=== PATIENT | female | born 1950 | race Caucasian/White ===

== ENCOUNTER 2018-06-20 17:13 | Inpatient (IN) | payer MEDICARE ==
--- NOTE | 2018-06-20 18:04 | ED ---
General Adult HPI - General Chief complaint: Weakness Stated complaint: low bp, sent from [employer] Time Seen by Provider: 06/20/18 17:25 Source: patient, RN notes reviewed Mode of arrival: wheelchair Limitations: no limitations - History of Present Illness Initial comments: This is a 68-year-old female who presents emergency Department who has a history of multiple myeloma. Patient has also been anemic more recently and been getting blood transfusion. Patient felt weak today she went to her doctor' s office where they found the patient to have a hemoglobin 8.3 which is decent for her according to the . Patient states her blood pressures closely [facility] where she received 2 L of fluid and her blood pressure remained low so they sent him to the emergency department. Patient states she's been feeling extremely weak today. Patient also states she's a little bit lightheaded. Patient denies any chest pain difficulty breathing [place] of breath per patient denies any abdominal pain patient denies nausea vomiting diarrhea. Patient denies any lightheadedness dizziness or near syncopal episode. Patient states she has not been eating or drinking well lately. - Related Data Home Medications Medication Instructions Recorded Confirmed No Known Home Medications 01/07/16 06/20/18 Allergies Allergy/AdvReac Type Severity Reaction Status Date / Time No Known Allergies Allergy Verified 06/20/18 18:18 Review of Systems ROS Statement: Those systems with pertinent positive or pertinent negative responses have been documented in the HPI. ROS Other: All systems not noted in ROS Statement are negative. Past Medical History Past Medical History: Cancer Additional Past Medical History / Comment(s): Leukemia History of Any Multi-Drug Resistant Organisms: None Reported Past Surgical History: Breast Surgery, Cholecystectomy, Joint Replacement, Orthopedic Surgery, Tubal Ligation Additional Past Surgical History / Comment(s): total rt hip arthroplasty, R breast cyst removal Past Anesthesia/Blood Transfusion Reactions: No Reported Reaction Past Psychological History: No Psychological Hx Reported Smoking Status: Former smoker Past Alcohol Use History: None Reported Past Drug Use History: None Reported - Past Family History Father Family Medical History: No Reported History Additional Family Medical History / Comment(s): Father was healthy. He in his 70's. Mother Family Medical History: Diabetes Mellitus Additional Family Medical History / Comment(s): Mother is 93 yrs old. Brother(s) Family Medical History: Cancer Additional Family Medical History / Comment(s): LUNG CANCER General Exam - General Exam Comments Initial Comments: GENERAL: Patient is cachectic Patient is nontoxic and well-hydrated and is in no acute distress. ENT: Neck is soft and supple. No significant lymphadenopathy is noted. Patient's tongue is pale EYES: Conjunctiva is pale. Extraocular movements were intact and pupils were equal round and reactive to light. Eyelids were unremarkable. PULMONARY: Unlabored respirations. Good breath sounds bilaterally. No audible rales rhonchi or wheezing was noted. CARDIOVASCULAR: There is a regular rate and rhythm without any murmurs gallops or rubs. ABDOMEN: Soft and nontender with normal bowel sounds. No palpable organomegaly was noted. There is no palpable pulsatile mass. SKIN: Patient is pale NEUROLOGIC: Patient is alert and oriented x3. Cranial nerves II through XII are grossly intact. Motor and sensory are also intact. Normal speech, volume and content. Symmetrical smile. MUSCULOSKELETAL: Normal extremities with adequate strength and full range of motion. LYMPHATICS: No significant lymphadenopathy is noted PSYCHIATRIC: Normal psychiatric evaluation. Limitations: no limitations Course Vital Signs 06/20/18 06/20/18 06/20/18 17:22 18:09 19:00 Temperature 97.4 F L Pulse Rate 100 96 Pulse Rate [ 62 Left Supine Pulse Oximetery ] Respiratory 20 18 Rate Blood Pressure 77/48 91/53 O2 Sat by Pulse 99 98 Oximetry 06/20/18 06/20/18 19:24 19:40 Temperature 98.5 F 98.5 F Pulse Rate 93 93 Pulse Rate [ Left Supine Pulse Oximetery ] Respiratory 18 16 Rate Blood Pressure 73/46 95/49 O2 Sat by Pulse 98 97 Oximetry Medical Decision Making - Medical Decision Making EKG shows normal sinus rhythm at 94 bpm IA interval is on a 32 QRS is 1:30 QT interval 386 QTC is 42. Patient's EKG shows left bundle branch block. Patient' s EKG shows no ST segment elevation or depression. Chest x-ray shows early pulmonary edema. There is questionable infiltrate. Dr. Salas wanted the patient to be started on antibiotics so started the patient on cefepime. Patient was low on a calcium so I gave her calcium chloride. She is blood pressure was in the 80s and 90s for most of her stay however it was 102 on my last check. states that most never gets above 100. I give the patient some hydrocortisone because of the stress that the patient was under. I spoke with Dr. Olivas and he agreed to admit the patient I admitted the patient wrote admitting orders. I consulted Dr. Salas. - Lab Data Result diagrams: 06/20/18 18:02 06/20/18 18:02 Lab Results 06/20/18 06/20/18 06/20/18 Range/Units 18:02 18:02 18:02 WBC 1.6 L (3.8-10.6) k/uL RBC 2.73 L (3.80-5.40) m/uL Hgb 7.7 L (11.4-16.0) gm/dL Hct 24.3 L (34.0-46.0) % MCV 89.1 (80.0-100.0) fL MCH 28.3 (25.0-35.0) pg MCHC 31.8 (31.0-37.0) g/dL RDW 17.7 H (11.5-15.5) % Plt Count 21 L (150-450) k/uL Neutrophils % (Manual) 36 % Band Neutrophils % 3 % Lymphocytes % (Manual) 51 % Monocytes % (Manual) 10 % Neutrophils # (Manual) 0.60 L (1.3-7.7) k/uL Lymphocytes # (Manual) 0.82 L (1.0-4.8) k/uL Monocytes # (Manual) 0.16 (0-1.0) k/uL Nucleated RBCs 0 (0-0) /100 WBC Manual Slide Review Performed Polychromasia Present Hypochromasia Slight Basophilic Stippling Present Anisocytosis Slight Anisocytosis (manual) Present PT (9.0-12.0) sec INR (<1.2) APTT (22.0-30.0) sec Sodium 131 L (137-145) mmol/L Potassium 4.7 (3.5-5.1) mmol/L Chloride 109 H (98-107) mmol/L Carbon Dioxide 18 L (22-30) mmol/L Anion Gap 4 mmol/L BUN 30 H (7-17) mg/dL Creatinine 0.53 (0.52-1.04) mg/dL Est GFR (CKD-EPI)AfAm >90 (>60 ml/min/1.73 sqM) Est GFR (CKD-EPI)NonAf >90 (>60 ml/min/1.73 sqM) Glucose 108 H (74-99) mg/dL Plasma Lactic Acid Bobby (0.7-2.0) mmol/L Calcium 6.7 L (8.4-10.2) mg/dL Magnesium 2.0 (1.6-2.3) mg/dL Total Bilirubin 1.2 (0.2-1.3) mg/dL AST 15 (14-36) U/L ALT 37 (9-52) U/L Alkaline Phosphatase 27 L (38-126) U/L Total Creatine Kinase <20 L (30-135) U/L CK-MB (CK-2) 0.8 (0.0-2.4) ng/mL CK-MB (CK-2) Rel Index Troponin I <0.012 (0.000-0.034) ng/mL Total Protein 3.1 L (6.3-8.2) g/dL Albumin 1.4 L (3.5-5.0) g/dL 06/20/18 06/20/18 Range/Units 18:02 18:02 WBC (3.8-10.6) k/uL RBC (3.80-5.40) m/uL Hgb (11.4-16.0) gm/dL Hct (34.0-46.0) % MCV (80.0-100.0) fL MCH (25.0-35.0) pg MCHC (31.0-37.0) g/dL RDW (11.5-15.5) % Plt Count (150-450) k/uL Neutrophils % (Manual) % Band Neutrophils % % Lymphocytes % (Manual) % Monocytes % (Manual) % Neutrophils # (Manual) (1.3-7.7) k/uL Lymphocytes # (Manual) (1.0-4.8) k/uL Monocytes # (Manual) (0-1.0) k/uL Nucleated RBCs (0-0) /100 WBC Manual Slide Review Polychromasia Hypochromasia Basophilic Stippling Anisocytosis Anisocytosis (manual) PT 13.5 H (9.0-12.0) sec INR 1.3 H (<1.2) APTT 27.3 (22.0-30.0) sec Sodium (137-145) mmol/L Potassium (3.5-5.1) mmol/L Chloride (98-107) mmol/L Carbon Dioxide (22-30) mmol/L Anion Gap mmol/L BUN (7-17) mg/dL Creatinine (0.52-1.04) mg/dL Est GFR (CKD-EPI)AfAm (>60 ml/min/1.73 sqM) Est GFR (CKD-EPI)NonAf (>60 ml/min/1.73 sqM) Glucose (74-99) mg/dL Plasma Lactic Acid Bobby 2.1 H* (0.7-2.0) mmol/L Calcium (8.4-10.2) mg/dL Magnesium (1.6-2.3) mg/dL Total Bilirubin (0.2-1.3) mg/dL AST (14-36) U/L ALT (9-52) U/L Alkaline Phosphatase (38-126) U/L Total Creatine Kinase (30-135) U/L CK-MB (CK-2) (0.0-2.4) ng/mL CK-MB (CK-2) Rel Index Troponin I (0.000-0.034) ng/mL Total Protein (6.3-8.2) g/dL Albumin (3.5-5.0) g/dL Disposition Clinical Impression: Hypocalcemia, Hypotension, Anemia, Pulmonary edema, Pneumonia Disposition: ADMITTED IP TO THIS HOSP Referrals: Montrell Jorge III, MD [Primary Care Provider] - 1-2 days Time of Disposition: 20:39
[2018-06-20 18:34] LABS: ALT 37 U/L (9-52); AST 15 U/L (14-36); Albumin 1.4 g/dL (3.5-5.0); Alkaline Phosphatase 27 U/L (38-126); Anion Gap 4 mmol/L; Blood Urea Nitrogen 30 mg/dL (7-17); Calcium 6.7 mg/dL (8.4-10.2); Carbon Dioxide 18 mmol/L (22-30); Chloride 109 mmol/L (98-107); Glucose 108 mg/dL (74-99); Potassium 4.7 mmol/L (3.5-5.1); Sodium 131 mmol/L (137-145); Total Bilirubin 1.2 mg/dL (0.2-1.3); Total Protein 3.1 g/dL (6.3-8.2)
[2018-06-20 18:37] LABS: Creatine Kinase <20 U/L (30-135)
--- NOTE | 2018-06-20 18:43 | XR ---
EXAMINATION TYPE: XR chest 1V portable DATE OF EXAM: 06/20/2018 COMPARISON: 10/28/2015 HISTORY: Weakness TECHNIQUE: Single frontal view of the chest is obtained. FINDINGS: A single view was obtained and shows blunting of the costophrenic angles. There is mild pu lmonary congestion. There is airspace infiltrates in the mid and lower lung mcdonald. There are chest l tylor. Thoracic aorta is atheromatous. IMPRESSION: There is evidence for new congestive heart failure compared to old exam. Bilateral lower lobe pneumonia is possible also. Small pleural effusions.
[2018-06-20 18:45] LABS: INR 1.3 (<1.2); Partial Thromboplastin Time 27.3 sec (22.0-30.0); Prothrombin Time 13.5 sec (9.0-12.0)
[2018-06-20 18:47] LABS: Anisocytosis Slight; HCT 24.3 % (34.0-46.0); HGB 7.7 gm/dL (11.4-16.0); Hypochromasia Slight; MCH 28.3 pg (25.0-35.0); MCHC 31.8 g/dL (31.0-37.0); MCV 89.1 fL (80.0-100.0); RBC 2.73 m/uL (3.80-5.40); RDW 17.7 % (11.5-15.5)
[2018-06-20 18:49] LABS: Creatine Kinase MB 0.8 ng/mL (0.0-2.4); Troponin I <0.012 ng/mL (0.000-0.034)
[2018-06-20 19:03] LABS: WBC 1.6 k/uL (3.8-10.6)
[2018-06-20 19:13] LABS: Anisocytosis (M) Present; Band Neutrophils % 3 %; Basophilic Stippling Present; Lymphocytes # (M) 0.82 k/uL (1.0-4.8); Monocytes # (M) 0.16 k/uL (0-1.0); Neutrophils % (M) 36 %; Nucleated Red Blood Cells 0 /100 WBC (0-0); Platelet Count 21 k/uL (150-450); Polychromasia Present; Total Cells Counted 100
[2018-06-20] MEDS ORDERED: HYDROCORTISONE SUCCINATE 100 MG/2 ML VIAL IV STA (19:44)
[2018-06-20] MEDS ORDERED: CALCIUM CHLORIDE 1,000 MG in SODIUM CHLORIDE 0.9% 100 ML IVPB STA (19:44)
[2018-06-20] MEDS ORDERED: FUROSEMIDE 10 MG/ML 10 ML VIAL IV STA (20:11)
[2018-06-20] MEDS ORDERED: CEFEPIME 2 GM in SODIUM CHLORIDE 0.9% 50 ML IVPB STA (20:58)
[2018-06-20] MEDS: SODIUM CHLORIDE 0.9% 1,000 ML IV SCH (22:40)
[2018-06-20 23:25] LABS: Creatine Kinase <20 U/L (30-135)
[2018-06-20 23:38] LABS: Creatine Kinase MB 0.7 ng/mL (0.0-2.4); Troponin I <0.012 ng/mL (0.000-0.034)
[2018-06-21 01:58] LABS: Anisocytosis Slight; HCT 23.9 % (34.0-46.0); HGB 7.3 gm/dL (11.4-16.0); Hypochromasia Marked; MCH 28.4 pg (25.0-35.0); MCHC 30.5 g/dL (31.0-37.0); MCV 93.2 fL (80.0-100.0); Mean Platelet Volume 16.2; RBC 2.57 m/uL (3.80-5.40); RDW 17.6 % (11.5-15.5)
[2018-06-21 02:10] LABS: WBC 1.3 k/uL (3.8-10.6)
[2018-06-21 02:11] LABS: Platelet Count 23 k/uL (150-450)
[2018-06-21 03:33] LABS: Lymphocytes # (M) 0.39 k/uL (1.0-4.8); Monocytes # (M) 0.08 k/uL (0-1.0); Neutrophils # (M) 0.83 k/uL (1.3-7.7); Neutrophils % (M) 64 %; Nucleated Red Blood Cells 0 /100 WBC (0-0); Total Cells Counted 100
[2018-06-21 03:35] LABS: Polychromasia Present
[2018-06-21] MEDS: CEFEPIME 2 GM in SODIUM CHLORIDE 0.9% 50 ML IVPB SCH ×2 (05:51→14:09)
[2018-06-21 07:34] LABS: Anisocytosis Slight; HCT 23.8 % (34.0-46.0); HGB 7.1 gm/dL (11.4-16.0); Hypochromasia Marked; MCH 28.2 pg (25.0-35.0); Mean Platelet Volume 14.6; RBC 2.53 m/uL (3.80-5.40); RDW 17.8 % (11.5-15.5)
[2018-06-21 07:38] LABS: Platelet Count 18 k/uL (150-450)
[2018-06-21 08:06] LABS: Eosinophils # (M) 0.01 k/uL (0-0.7); Large Platelets Present; Lymphocytes # (M) 0.49 k/uL (1.0-4.8); Neutrophils % (M) 46 %; Nucleated Red Blood Cells 0 /100 WBC (0-0); Polychromasia Present; Total Cells Counted 100
[2018-06-21 08:10] LABS: Creatine Kinase <20 U/L (30-135)
[2018-06-21 08:22] LABS: Troponin I <0.012 ng/mL (0.000-0.034)
[2018-06-21 08:24] LABS: Creatine Kinase MB 0.8 ng/mL (0.0-2.4)
[2018-06-21] MEDS: SODIUM CHLORIDE 0.9% 1,000 ML IV SCH (10:01)
--- NOTE | 2018-06-21 13:07 | P.CONS ---
History of Present Illness - Reason for Consult Consult date: 06/21/18 pancytopenia Requesting physician: Zuhair Oakes - Chief Complaint hypotension, sent from MD office - History of Present Illness Mrs. Lamar is a very pleasant female pt who was evaluated by Dr. Salas in Apr 2017. She had had an episode of leukocytosis, WBC 60,000-70,000 range, duering an episode of pneumonia but, this resolved and her WBC returned to normal. Pt went to her PCP 04/19/17 due to easy bruising, she had a normal chem panel but, WBC was 62.5 with hemoglobin 12.7 and platelets 247. Differential showed elevation of all cell lines as well as a significant left shift with myelocytes, promyelocytes, and blasts noted. Repeat labs on 04/27/17 showed WBC of 56.9 with a similar differential, no blasts. 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 She saw Dr. Vazquez who concurred diagnosis. She was not felt to be a transplant candidate per the pt. Her WBC was increasing rapidly with progressive fatigue so, she was started on Hydrea 500 mg Po BID on 06/23/17. Her dose was adjusted and held as needed based on counts or procedures. Then in Apr 2018 her counts were noted to be decreasing. Hydrea was held but, pancytopenia persisted and progressed. She had a bone marrow on 05/22/18. Unfortunately, there was progression of myelofibrosis as well as obvious MDS. She was in office yesterday for monitoring and conservative transfusions needed for MF and MDS pending BMT in September 2018. She was seen and evaluated at [facility]. Pt was told to "get stronger" so she can have transplant. Pt is unable to rehabilitate adequately due to low counts, fatigue , poor appetite, anorexia and weakness-caused by 2 diseases and low blood counts. In the office yesterday she denied fevers, nausea, vomiting, diarrhea, constipation or pain, her BP was very low. Attempted fluid resuscitation in the office but pt did not recover so she was sent to hospital. She was given additional fluids, abx for elevated lactic acid, pancultures pending. She feels a little better today, not as anxious, fatigue, appetite, anorexia and weakness persist, no other c/o on a 14 point ROS. Review of Systems 14 point ROS is negative except as stated in HPI Past Medical History Past Medical History: Cancer, Pneumonia Additional Past Medical History / Comment(s): Leukemia History of Any Multi-Drug Resistant Organisms: None Reported Past Surgical History: Breast Surgery, Cholecystectomy, Joint Replacement, Orthopedic Surgery, Tubal Ligation Additional Past Surgical History / Comment(s): Total rt hip arthroplasty, R breast cyst removal, ganglion cyst removed on right wrist, bunion and toe shortened left foot, Past Anesthesia/Blood Transfusion Reactions: No Reported Reaction Past Psychological History: No Psychological Hx Reported Additional Psychological History / Comment(s): Pt resides with her spouse. Patient uses a walker/cane/ wheelchair depending on situation. Smoking Status: Former smoker Past Alcohol Use History: None Reported Additional Past Alcohol Use History / Comment(s): Pt states she started smoking in 1975 and is a 1 ppd smoker. Past Drug Use History: None Reported - Past Family History Father Family Medical History: No Reported History Additional Family Medical History / Comment(s): Father was healthy. He in his 70's. Alcoholic. Mother Family Medical History: Diabetes Mellitus Additional Family Medical History / Comment(s): Mother has passed now. Brother(s) Family Medical History: Cancer Additional Family Medical History / Comment(s): LUNG CANCER Medications and Allergies Home Medications Medication Instructions Recorded Confirmed Type No Known Home Medications 01/07/16 06/20/18 History Allergies Allergy/AdvReac Type Severity Reaction Status Date / Time No Known Allergies Allergy Verified 06/20/18 18:18 Physical Exam Vitals: Vital Signs Temp Pulse Pulse Resp BP BP Pulse Ox 06/21/18 05:00 97.4 F L 90 16 86/55 93 L 06/21/18 00:17 95/64 98 06/20/18 22:37 98.0 F 98 24 109/68 97 06/20/18 22:12 98.2 F 97 20 115/61 96 06/20/18 22:03 98 06/20/18 21:00 92 20 104/49 95 06/20/18 20:50 90 22 104/49 98 06/20/18 20:40 90 20 96/48 98 06/20/18 20:20 90 21 102/46 98 06/20/18 20:00 91 8 L 108/54 06/20/18 19:40 98.5 F 93 16 95/49 97 06/20/18 19:24 98.5 F 93 18 73/46 98 06/20/18 19:00 96 18 91/53 98 06/20/18 18:09 62 06/20/18 17:22 97.4 F L 100 20 77/48 99 Intake and Output 06/20/18 06/21/18 06/21/18 22:59 06:59 14:59 Intake Total 875 Balance 875 Intake: Intake, IV Titration 650 Amount Cefepime 2 gm In Sodium 50 Chloride 0.9% 50 ml @ 100 mls/hr IVPB ONCE STA Rx# :[id number] Sodium Chloride 0.9% 1, 600 000 ml @ 75 mls/hr IV . [id number] [facility] Rx#:[id number] Oral 225 Other: Voiding Method Bedside Commode # Voids 1 # Bowel Movements 1 Weight 63.957 kg - Constitutional General appearance: cooperative, no acute distress, thin - EENT Eyes: anicteric sclerae, EOMI ENT: normal oropharynx - Neck Neck: no lymphadenopathy - Respiratory Respiratory: bilateral: CTA - Cardiovascular Heart sounds: normal: S1, S2 leg Peripheral Edema: bilateral: Trace - Gastrointestinal General gastrointestinal: no absent bowel sounds, no decreased bowel sounds, no distended, no hepatomegaly, no hyperactive bowel sounds, normal bowel sounds, no organomegaly, no rigid, no scaphoid, soft, no splenomegaly, no tenderness, no umbilical hernia, no ventral hernia - Integumentary Integumentary: pale - Neurologic Neurologic: CNII-XII intact - Musculoskeletal Musculoskeletal: generalized weakness, strength equal bilaterally - Psychiatric Psychiatric: A&O x's 3, appropriate affect, intact judgment & insight Results CBC & Chem 7: 06/21/18 07:18 06/20/18 18:02 Labs: Abnormal Lab Results - Last 24 Hours (Table) 06/20/18 06/20/18 06/20/18 Range/Units 18:02 18:02 18:02 WBC 1.6 L (3.8-10.6) k/uL RBC 2.73 L (3.80-5.40) m/uL Hgb 7.7 L (11.4-16.0) gm/dL Hct 24.3 L (34.0-46.0) % MCHC (31.0-37.0) g/dL RDW 17.7 H (11.5-15.5) % Plt Count 21 L (150-450) k/uL Neutrophils # (Manual) 0.60 L (1.3-7.7) k/uL Lymphocytes # (Manual) 0.82 L (1.0-4.8) k/uL PT (9.0-12.0) sec INR (<1.2) Sodium 131 L (137-145) mmol/L Chloride 109 H (98-107) mmol/L Carbon Dioxide 18 L (22-30) mmol/L BUN 30 H (7-17) mg/dL Glucose 108 H (74-99) mg/dL Plasma Lactic Acid Bobby (0.7-2.0) mmol/L Calcium 6.7 L (8.4-10.2) mg/dL Alkaline Phosphatase 27 L (38-126) U/L Total Creatine Kinase <20 L (30-135) U/L Total Protein 3.1 L (6.3-8.2) g/dL Albumin 1.4 L (3.5-5.0) g/dL 06/20/18 06/20/18 06/20/18 Range/Units 18:02 18:02 22:35 WBC (3.8-10.6) k/uL RBC (3.80-5.40) m/uL Hgb (11.4-16.0) gm/dL Hct (34.0-46.0) % MCHC (31.0-37.0) g/dL RDW (11.5-15.5) % Plt Count (150-450) k/uL Neutrophils # (Manual) (1.3-7.7) k/uL Lymphocytes # (Manual) (1.0-4.8) k/uL PT 13.5 H (9.0-12.0) sec INR 1.3 H (<1.2) Sodium (137-145) mmol/L Chloride (98-107) mmol/L Carbon Dioxide (22-30) mmol/L BUN (7-17) mg/dL Glucose (74-99) mg/dL Plasma Lactic Acid Bobby 2.1 H* (0.7-2.0) mmol/L Calcium (8.4-10.2) mg/dL Alkaline Phosphatase (38-126) U/L Total Creatine Kinase <20 L (30-135) U/L Total Protein (6.3-8.2) g/dL Albumin (3.5-5.0) g/dL 06/21/18 06/21/18 06/21/18 Range/Units 01:07 07:18 07:18 WBC 1.3 L* 1.3 L* (3.8-10.6) k/uL RBC 2.57 L 2.53 L (3.80-5.40) m/uL Hgb 7.3 L 7.1 L (11.4-16.0) gm/dL Hct 23.9 L 23.8 L (34.0-46.0) % MCHC 30.5 L 30.0 L (31.0-37.0) g/dL RDW 17.6 H 17.8 H (11.5-15.5) % Plt Count 23 L 18 L* (150-450) k/uL Neutrophils # (Manual) 0.83 L 0.60 L (1.3-7.7) k/uL Lymphocytes # (Manual) 0.39 L 0.49 L (1.0-4.8) k/uL PT (9.0-12.0) sec INR (<1.2) Sodium (137-145) mmol/L Chloride (98-107) mmol/L Carbon Dioxide (22-30) mmol/L BUN (7-17) mg/dL Glucose (74-99) mg/dL Plasma Lactic Acid Bobby (0.7-2.0) mmol/L Calcium (8.4-10.2) mg/dL Alkaline Phosphatase (38-126) U/L Total Creatine Kinase <20 L (30-135) U/L Total Protein (6.3-8.2) g/dL Albumin (3.5-5.0) g/dL Chest x-ray: report reviewed Assessment and Plan (1) Hypotension Narrative/Plan: Fluid resuscitation. Pt was given solucortef. BP stable, pt looks better then yesterday. Cont fluid support, encourage oral intake Current Visit: Yes Status: Acute Priority: High Code(s): I95.9 - HYPOTENSION, UNSPECIFIED SNOMED Code(s): 97495767 (2) Pancytopenia Narrative/Plan: Due to myelofibrosis and myelodysplastic syndrome. No transfusions today. Only irradiated blood products. No GCSF. Current Visit: Yes Status: Acute Priority: High Code(s): D61.818 - OTHER PANCYTOPENIA SNOMED Code(s): 736128401 (3) Myelofibrosis Current Visit: Yes Status: Acute Priority: High Code(s): D75.81 - MYELOFIBROSIS SNOMED Code(s): 56816750 (4) Myelodysplastic syndrome Current Visit: Yes Status: Acute Priority: High Code(s): D46.9 - MYELODYSPLASTIC SYNDROME, UNSPECIFIED SNOMED Code(s): 965487379 Plan: Pt is wanting to rehabilitate to be a transplant candidate. She is in a situation where she cannot receive treatment for either disease as it will profoundly affect her already poor blood counts with the added chemo side effects. This is not an optimum scenario for rehabilitation. Pt is on supportive transfusions but, that is all transfusions will do, support her, they will not improve her ability rehabilitate. Spoke with BMT nurse at [facility]. She recommended initiating the baseline work up necessary to see if a pt is a candidate for transplant. PFTs and ECHO ordered. Dr. Salas is trying to get a hold of transplant lead. We will f/u with pt daily and keep them up to date on plan. All pt and husbands questions were answered attests: I have performed H&P and developed impression and plan of patient with dictator. I agree with dictated note, documented as a scribe.
[2018-06-21] MEDS: ACETAMINOPHEN TAB 325 MG TAB PO PRN (13:12)
[2018-06-21 15:04] LABS: Appearance,Urine Clear (Clear); Bacteria,Urine Few /hpf; Bilirubin,Urine Negative (Negative); Blood,Urine Negative (Negative); Color,Urine Yellow; Glucose,Urine (UA) Negative (Negative); Ketones,Urine Trace (Negative); Leukocyte Esterase,Urine Small (Negative); Mucus,Urine Few /hpf; Nitrite,Urine Positive (Negative); Protein,Urine 1+ (Negative); Specific Gravity,Urine 1.018 (1.001-1.035); Squamous Epithelial Cell,Urine 2 /hpf (0-4); Urobilinogen,Urine <2.0 mg/dL (<2.0); WBC,Urine 28 /hpf (0-5)
--- NOTE | 2018-06-21 16:39 | HP ---
HISTORY AND PHYSICAL CHIEF COMPLAINTS: Hypotension, weakness, depression. This 68-year-old woman with a past medical history of multiple medical problems, including myelodysplastic syndrome, history of myelofibrosis, history of pneumonia, history of leukopenia, history of cholecystectomy, history of DJD, history of breast surgery, being followed by Dr. Jorge and Dr. Willis in the outpatient setting , was also involved with [facility] for possible bone marrow transplantation. The patient recently was receiving blood transfusion and the patient, because of complaints of weakness and having low blood pressure, 2 L of IV fluids was given in [facility] because of lack of improvement, patient came to the emergency room and was admitted for further evaluation and treatment. The blood pressure is slightly improved at this time. Patient has pancytopenia, hemoglobin 7.1, platelets of 18, plasma lactic acid 2.1. Patient was also started on broad-spectrum IV antibiotics. Patient is being closely monitored. The patient is on IV cefepime at this time. The cultures are negative so far. There is no history of any fever, rigor or chills. No history of headache , loss of consciousness, seizures. PAST MEDICAL HISTORY: 1. History of MDS. 2. History of myelofibrosis. 3. Cholecystis. 4. History of DJD. HOME MEDICATIONS: None. ALLERGIES: NONE. FAMILY HISTORY: No history of heart disease or strokes in the family. History of alcohol in the family. SOCIAL HISTORY: Previous history of smoking. No current smoking or alcohol intake. REVIEW OF SYSTEMS: ENT: No diminished hearing. No diminished vision. CARDIOVASCULAR SYSTEM: No angina, palpitations. RESPIRATORY SYSTEM: As mentioned earlier. GI: As mentioned earlier. : No dysuria or retention. NERVOUS SYSTEM: No numbness, weakness. ALLERGY/IMMUNOLOGY: No asthma, hayfever. MUSCULOSKELETAL: As mentioned earlier. HEMATOLOGY/ONCOLOGY: No history of anemia. ENDOCRINE: No history of diabetes, hypothyroidism. CONSTITUTIONAL: As mentioned earlier. DERMATOLOGY: Negative. RHEUMATOLOGY: Negative. PSYCHIATRY: As mentioned earlier. PHYSICAL EXAMINATION: Patient is alert and oriented x3. Pulse is 85, blood pressure 84/51, respiration 17, temperature 97.4, pulse ox 96% on room air. HEENT: Conjunctivae normal. Oral mucosa moist. NECK: No jugular venous distention. No carotid bruit. No lymph node enlargement. CARDIOVASCULAR SYSTEM: S1, S2 muffled. RESPIRATORY SYSTEM: Breath sounds diminished at the bases. A few scattered rhonchi and crackles. ABDOMEN: Soft, non-tender. No mass palpable. LEGS: No edema. No swelling. NERVOUS SYSTEM: Higher functions as mentioned earlier. Moves all 4 limbs. No focal motor or sensory deficit. LYMPHATICS: No lymph node palpable in neck, axillae or groin. SKIN: No ulcer, rash, bleeding. LABS: WBC 1.3, hemoglobin 7.1, platelets 18. Sodium 131, potassium 4.7, plasma lactic acid 2.1 and creatine kinase is less than 20. ASSESSMENT: 1. Acute hypotension with possible sepsis. 2. Rule out pulmonary edema and bilateral pneumonia. 3. Pancytopenia secondary to myelodysplastic syndrome and myelofibrosis. 4. Severe leukopenia. 5. Hyponatremia. 6. Elevated plasma lactic acid, present on admission. 7. Hypoalbuminemia. 8. History of cholecystectomy. 9. History of degenerative joint disease. RECOMMENDATIONS AND DISCUSSION: In this 68-year-old woman who presented with multiple complex medical issues, we will monitor the patient closely, continue the current management, continue symptomatic treatment, broad-spectrum IV antibiotics. Obtain the cultures. Infectious disease evaluation. I would also get a pulmonary consultation for evaluation of pneumonia. BNP is also being done. Two-D echo also will be ordered. The prognosis is guarded because of the multiple complex medical issues. Further recommendations to follow. A copy of this dictation is being forwarded to Dr. Jorge, who is the primary physician. LUZ / DELORIS: [id number] / [id number]
[2018-06-21] MEDS ORDERED: VANCOMYCIN IV PER PHARMACY 1 EACH MISC MISCELLANE PRN (17:04)
[2018-06-21] MEDS ORDERED: SODIUM CHLORIDE 0.9% 500 ML 500 ML IV ONE (17:07)
[2018-06-21] MEDS ORDERED: VANCOMYCIN 1,500 MG in SODIUM CHLORIDE 0.9% 250 ML IVPB ONE (17:30)
--- NOTE | 2018-06-21 18:01 | P.CNPUL ---
History of Present Illness Consult date: 06/21/18 Requesting physician: Geovany Olivas Reason for consult: other Chief complaint: Hypotension, weakness, neutropenic sepsis History of present illness: This 68-year-old white female patient with history of miyelodysplastic syndrome , who is being considered for bone marrow transplant, presented to her medical oncologist office yesterday for monitoring and transfusions. Patient was noted to be very weak, fatigued, hypotensive. She denied any fevers, patient has been unable to eat related to severe sharp epigastric discomfort after eating. No vomiting or diarrhea. She was sent to the hospital for further evaluation and treatment, on admission was in the 70s over 40s, she was given 2 L IV fluid bolus. Lactic acid was mildly elevated at 2.1, blood work revealed pancytopenia , WBC of 1.6, hemoglobin of 7.7, platelet count of 21, INR is 1.3, sodium is 131 , potassium is 4.7, chloride is 109, CO2 is 18 BUN of 30 and creatinine of 0.53 , bun is negative 3, urinalysis showed white blood cells, small amount of leuks , few bacteria and mucus. Blood cultures were drawn and pending at this time, patient was started on broad-spectrum antibiotic in the form of cefepime. She was given a dose of IV hydrocortisone in the emergency department, chest x-ray showed mild pulmonary congestion, and blunting of the costophrenic angles consistent for congestive heart failure small bilateral pleural effusions. He was given a dose of IV Lasix in the emergency department. Patient was then admitted to the oncology floor, and her blood pressures remain hypotensive 84/ 51, she appears to be pale and fatigued, denies acute distress unless she eats. Afebrile. Serum cortisol is been ordered. Review of Systems All systems: negative Constitutional: Reports anorexia, Reports fatigue, Reports poor appetite, Reports weakness, Reports weight loss, Denies chills, Denies fever Eyes: denies blurred vision, denies pain Ears, nose, mouth and throat: Denies headache, Denies sore throat Cardiovascular: Denies chest pain, Denies shortness of breath Respiratory: Denies cough Gastrointestinal: Denies abdominal pain, Denies diarrhea, Denies nausea, Denies vomiting Genitourinary: Denies dysuria, Denies hematuria Musculoskeletal: Denies myalgias Integumentary: Denies pruritus, Denies rash Neurological: Denies numbness, Denies weakness Psychiatric: Denies anxiety, Denies depression Endocrine: Denies fatigue, Denies weight change Past Medical History Past Medical History: Cancer, Pneumonia Additional Past Medical History / Comment(s): Leukemia History of Any Multi-Drug Resistant Organisms: None Reported Past Surgical History: Breast Surgery, Cholecystectomy, Joint Replacement, Orthopedic Surgery, Tubal Ligation Additional Past Surgical History / Comment(s): Total rt hip arthroplasty, R breast cyst removal, ganglion cyst removed on right wrist, bunion and toe shortened left foot, Past Anesthesia/Blood Transfusion Reactions: No Reported Reaction Past Psychological History: No Psychological Hx Reported Additional Psychological History / Comment(s): Pt resides with her spouse. Patient uses a walker/cane/ wheelchair depending on situation. Smoking Status: Former smoker Past Alcohol Use History: None Reported Additional Past Alcohol Use History / Comment(s): Pt states she started smoking in 1975 and is a 1 ppd smoker. Past Drug Use History: None Reported - Past Family History Father Family Medical History: No Reported History Additional Family Medical History / Comment(s): Father was healthy. He in his 70's. Alcoholic. Mother Family Medical History: Diabetes Mellitus Additional Family Medical History / Comment(s): Mother has passed now. Brother(s) Family Medical History: Cancer Additional Family Medical History / Comment(s): LUNG CANCER Medications and Allergies Home Medications Medication Instructions Recorded Confirmed Type No Known Home Medications 01/07/16 06/20/18 History Allergies Allergy/AdvReac Type Severity Reaction Status Date / Time No Known Allergies Allergy Verified 06/20/18 18:18 Physical Exam Vitals: Vital Signs Temp Pulse Pulse Pulse Pulse Resp BP 06/21/18 17:27 88 06/21/18 12:07 97.4 F L 85 17 06/21/18 05:00 97.4 F L 90 16 06/21/18 00:17 06/20/18 22:37 98.0 F 98 24 109/68 06/20/18 22:12 98.2 F 97 20 115/61 06/20/18 22:03 06/20/18 21:00 92 20 104/49 06/20/18 20:50 90 22 104/49 06/20/18 20:40 90 20 96/48 06/20/18 20:20 90 21 102/46 06/20/18 20:00 91 8 L 108/54 06/20/18 19:40 98.5 F 93 16 95/49 06/20/18 19:24 98.5 F 93 18 73/46 06/20/18 19:00 96 18 91/53 06/20/18 18:09 62 BP Pulse Ox 06/21/18 17:27 96/62 06/21/18 12:07 84/51 96 06/21/18 05:00 86/55 93 L 06/21/18 00:17 95/64 98 06/20/18 22:37 97 06/20/18 22:12 96 06/20/18 22:03 98 06/20/18 21:00 95 06/20/18 20:50 98 06/20/18 20:40 98 06/20/18 20:20 98 06/20/18 20:00 06/20/18 19:40 97 06/20/18 19:24 98 06/20/18 19:00 98 06/20/18 18:09 Intake and Output 06/21/18 06/21/18 06/21/18 06:59 14:59 22:59 Intake Total 875 600 Balance 875 600 Intake: Intake, IV Titration 650 600 Amount Cefepime 2 gm In Sodium 50 Chloride 0.9% 50 ml @ 100 mls/hr IVPB ONCE [facility] Rx# :[id number] Sodium Chloride 0.9% 1, 600 600 000 ml @ 75 mls/hr IV . [id number] Rx#:[id number] Oral 225 Other: Voiding Method Bedside Commode Bedside Commode # Voids 1 1 # Bowel Movements 1 1 Weight 63.957 kg GENERAL EXAM: Alert, pleasant, pale 68-year-old white female, appears to be fatigued, but in no apparent distress, comfortable in no apparent distress. HEAD: Normocephalic/atraumatic. EYES: Normal reaction of pupils, equal size. Conjunctiva pink, sclera white. NOSE: Clear with pink turbinates. THROAT: No erythema or exudates. NECK: No masses, no JVD, no thyroid enlargement, no adenopathy. CHEST: No chest wall deformity. Symmetrical expansion. LUNGS: Equal air entry with some limited crackles, wheeze, rhonchi or dullness. CVS: Regular rate and rhythm, normal S1 and S2, no gallops, no murmurs, no rubs ABDOMEN: Soft, nontender. No hepatosplenomegaly, normal bowel sounds, no guarding or rigidity. EXTREMITIES: No clubbing, no edema, no cyanosis, 2+ pulses and upper and lower extremities. MUSCULOSKELETAL: Muscle strength and tone normal. SPINE: No scoliosis or deformity SKIN: No rashes CENTRAL NERVOUS SYSTEM: Alert and oriented -3. No focal deficits, tone is normal in all 4 extremities. PSYCHIATRIC: Alert and oriented -3. Appropriate affect. Intact judgment and insight. Results - Laboratory Findings CBC and BMP: 06/21/18 07:18 06/20/18 18:02 PT/INR, D-dimer PT 13.5 sec (9.0-12.0) H 06/20/18 18:02 INR 1.3 (<1.2) H 06/20/18 18:02 Abnormal lab findings: Abnormal Labs 06/20/18 06/20/18 06/20/18 14:17 18:02 18:02 WBC 1.6 L RBC 2.73 L Hgb 7.7 L Hct 24.3 L MCHC RDW 17.7 H Plt Count 21 L Neutrophils # (Manual) 0.60 L Lymphocytes # (Manual) 0.82 L PT INR Sodium Chloride Carbon Dioxide BUN Glucose Plasma Lactic Acid Bobby Calcium Alkaline Phosphatase Total Creatine Kinase <20 L Total Protein Albumin Urine Protein 1+ H Urine Ketones Trace H Urine Nitrite Positive H Ur Leukocyte Esterase Small H Urine WBC 28 H Urine Bacteria Few H Urine Mucus Few H 06/20/18 06/20/18 06/20/18 18:02 18:02 18:02 WBC RBC Hgb Hct MCHC RDW Plt Count Neutrophils # (Manual) Lymphocytes # (Manual) PT 13.5 H INR 1.3 H Sodium 131 L Chloride 109 H Carbon Dioxide 18 L BUN 30 H Glucose 108 H Plasma Lactic Acid Bobby 2.1 H* Calcium 6.7 L Alkaline Phosphatase 27 L Total Creatine Kinase Total Protein 3.1 L Albumin 1.4 L Urine Protein Urine Ketones Urine Nitrite Ur Leukocyte Esterase Urine WBC Urine Bacteria Urine Mucus 06/20/18 06/21/18 06/21/18 22:35 01:07 07:18 WBC 1.3 L* RBC 2.57 L Hgb 7.3 L Hct 23.9 L MCHC 30.5 L RDW 17.6 H Plt Count 23 L Neutrophils # (Manual) 0.83 L Lymphocytes # (Manual) 0.39 L PT INR Sodium Chloride Carbon Dioxide BUN Glucose Plasma Lactic Acid Bobby Calcium Alkaline Phosphatase Total Creatine Kinase <20 L <20 L Total Protein Albumin Urine Protein Urine Ketones Urine Nitrite Ur Leukocyte Esterase Urine WBC Urine Bacteria Urine Mucus 06/21/18 07:18 WBC 1.3 L* RBC 2.53 L Hgb 7.1 L Hct 23.8 L MCHC 30.0 L RDW 17.8 H Plt Count 18 L* Neutrophils # (Manual) 0.60 L Lymphocytes # (Manual) 0.49 L PT INR Sodium Chloride Carbon Dioxide BUN Glucose Plasma Lactic Acid Bobby Calcium Alkaline Phosphatase Total Creatine Kinase Total Protein Albumin Urine Protein Urine Ketones Urine Nitrite Ur Leukocyte Esterase Urine WBC Urine Bacteria Urine Mucus - Diagnostic Findings Chest x-ray: report reviewed, image reviewed Additional studies: EKG reviewed Assessment and Plan Plan: Assessment: #1. Neutropenic sepsis #2. Myelodysplastic syndrome and myelofibrosis, being considered for bone marrow transplant #3. Pancytopenia #4. Hypotension, weakness, fatigue, anorexia #5. Epigastric discomfort #6. Non-anion gap metabolic acidosis #7. Hyponatremia #8. Nicotine dependence in remission Plan: We'll give the patient additional 500 mL of IV fluid bolus. Patient needs to be transferred to the intensive care for closer monitoring. Cultures were collected and are pending at this time, will continue cefepime and will add vancomycin. 2-D echo is pending, BMP has been ordered. Increase IV fluids 2.9 normal seen at a rate of 125 the boluses completed. Hematology following, repeat blood work in the morning, a chest x-ray. I performed a history & physical examination of the patient and discussed their management with my nurse practitioner, Chandni Martins. I reviewed the nurse practitioner's note and agree with the documented findings and plan of care. Lung sounds are few bibasilar crackles. The findings and the impression was discussed with the patient. I attest to the documentation by the nurse practitioner. Time with Patient: Greater than 30
[2018-06-21 18:15] LABS: Glucose,Whole Blood 117 mg/dL (75-99)
[2018-06-21 20:36] LABS: Amylase <30 U/L (30-110); Lipase <10 U/L (23-300)
[2018-06-22] MEDS: CEFEPIME 2 GM in SODIUM CHLORIDE 0.9% 50 ML IVPB SCH ×4 (01:54→21:57)
[2018-06-22] MEDS: SODIUM CHLORIDE 0.9% 1,000 ML IV SCH ×3 (01:54→17:43)
[2018-06-22] MEDS: PANTOPRAZOLE 40 MG/10 ML VIAL IVP SCH ×3 (01:54→21:57)
[2018-06-22 06:43] LABS: Anisocytosis Slight; HCT 21.5 % (34.0-46.0); Hypochromasia Marked; MCH 28.8 pg (25.0-35.0); MCHC 30.4 g/dL (31.0-37.0); MCV 94.8 fL (80.0-100.0); Macrocytosis Slight; Mean Platelet Volume 12.9; RBC 2.27 m/uL (3.80-5.40); RDW 17.8 % (11.5-15.5)
[2018-06-22 06:51] LABS: WBC 1.3 k/uL (3.8-10.6)
[2018-06-22 06:53] LABS: HGB 6.5 gm/dL (11.4-16.0); Platelet Count 18 k/uL (150-450)
[2018-06-22 07:17] LABS: WBC 1.3 k/uL (3.8-10.6)
[2018-06-22 07:17] LABS: Anion Gap 3 mmol/L; Blood Urea Nitrogen 31 mg/dL (7-17); Calcium 6.9 mg/dL (8.4-10.2); Carbon Dioxide 14 mmol/L (22-30); Chloride 118 mmol/L (98-107); Glucose 96 mg/dL (74-99); Sodium 135 mmol/L (137-145)
[2018-06-22] MEDS ORDERED: PANTOPRAZOLE 40 MG TABLET PO SCH (07:30)
--- NOTE | 2018-06-22 08:14 | XR ---
EXAMINATION TYPE: XR chest 1V portable DATE OF EXAM: 06/22/2018 COMPARISON: AP chest x-ray dated 06/20/2018 HISTORY: Abnormal chest x-ray TECHNIQUE: Single frontal view of the chest is obtained. FINDINGS: Basilar increased density persists, biapical pleural thickening is stable. Heart size is s table. Aorta is dense. There are overlying cardiac leads. Patient is rotated. Prominent lung volumes compatible with underlying COPD are noted. No evident pneumothorax. IMPRESSION: There may be basilar atelectasis versus pneumonia, effusion. Follow-up PA and lateral ch est x-ray recommended.
[2018-06-22 08:39] LABS: Band Neutrophils % 2 %; Eosinophils # (M) 0.03 k/uL (0-0.7); Lymphocytes # (M) 0.52 k/uL (1.0-4.8); Monocytes # (M) 0.14 k/uL (0-1.0); Neutrophils % (M) 46 %; Nucleated Red Blood Cells 1 /100 WBC (0-0); Total Cells Counted 200
[2018-06-22 08:40] LABS: Large Platelets Present; Poikilocytosis (M) Present; Polychromasia Present
[2018-06-22] MEDS: VANCOMYCIN 1,250 MG in SODIUM CHLORIDE 0.9% 250 ML IVPB SCH ×2 (08:52→18:50)
[2018-06-22] MEDS ORDERED: FUROSEMIDE 10 MG/ML 2 ML VIAL IV ONE (10:00)
--- NOTE | 2018-06-22 10:46 | P.PN ---
Subjective Progress Note Date: 06/22/18 Principal diagnosis: Hypotension, MDS Hemoglobin 6.5 Objective - Vital Signs Vital signs: Vital Signs Temp 97.6 F 06/22/18 08:00 Pulse 95 06/22/18 10:00 Resp 17 06/22/18 10:00 BP 87/60 06/22/18 10:00 Pulse Ox 97 06/22/18 10:00 Intake & Output 06/21/18 06/22/18 06/22/18 18:59 06:59 18:59 Intake Total 600 500 850 Output Total 895 155 Balance 600 -395 695 Weight 63.957 kg 64.7 kg Intake: IV 500 850 Cefepime 2 gm In Sodium 100 Chloride 0.9% 50 ml @ 100 mls/hr IVPB Q8H [facility] Rx#: [id number] Sodium Chloride 0.9% 1, 500 375 000 ml @ 125 mls/hr IV . Q8H [facility] Rx#:[id number] Vancomycin 1,250 mg In 375 Sodium Chloride 0.9% 250 ml @ 125 mls/hr IVPB Q12H [facility] Rx#:[id number] Intake, IV Titration 600 Amount Sodium Chloride 0.9% 1, 600 000 ml @ 125 mls/hr IV . Q8H [facility] Rx#:[id number] Output: Urine 895 155 Other: Voiding Method Bedside Commode Bedside Commode Indwelling Catheter # Voids 1 # Bowel Movements 1 - Exam Constitutional General appearance: cooperative, no acute distress, thin - EENT Eyes: anicteric sclerae, EOMI ENT: normal oropharynx - Neck Neck: no lymphadenopathy - Respiratory Respiratory: bilateral: CTA - Cardiovascular Heart sounds: normal: S1, S2 leg Peripheral Edema: bilateral: Trace - Gastrointestinal General gastrointestinal: no absent bowel sounds, no decreased bowel sounds, no distended, no hepatomegaly, no hyperactive bowel sounds, normal bowel sounds, no organomegaly, no rigid, no scaphoid, soft, no splenomegaly, no tenderness, no umbilical hernia, no ventral hernia - Integumentary Integumentary: pale - Neurologic Neurologic: CNII-XII intact - Musculoskeletal Musculoskeletal: generalized weakness, strength equal bilaterally - Psychiatric Psychiatric: A&O x's 3, appropriate affect, intact judgment & insight - Labs CBC & Chem 7: 06/22/18 05:47 06/22/18 05:47 Labs: Abnormal Lab Results - Last 24 Hours (Table) 06/20/18 06/21/18 06/21/18 Range/Units 14:17 07:18 18:14 WBC 1.3 L* (3.8-10.6) k/uL RBC (3.80-5.40) m/uL Hgb (11.4-16.0) gm/dL Hct (34.0-46.0) % MCHC (31.0-37.0) g/dL RDW (11.5-15.5) % Plt Count (150-450) k/uL Neutrophils # (Manual) (1.3-7.7) k/uL Lymphocytes # (Manual) (1.0-4.8) k/uL Nucleated RBCs (0-0) /100 WBC Sodium (137-145) mmol/L Chloride (98-107) mmol/L Carbon Dioxide (22-30) mmol/L BUN (7-17) mg/dL POC Glucose (mg/dL) 117 H (75-99) mg/dL Calcium (8.4-10.2) mg/dL Amylase (30-110) U/L Lipase (23-300) U/L Urine Protein 1+ H (Negative) Urine Ketones Trace H (Negative) Urine Nitrite Positive H (Negative) Ur Leukocyte Esterase Small H (Negative) Urine WBC 28 H (0-5) /hpf Urine Bacteria Few H (None) /hpf Urine Mucus Few H (None) /hpf Crossmatch 06/21/18 06/22/18 06/22/18 Range/Units 19:57 05:47 05:47 WBC 1.3 L* (3.8-10.6) k/uL RBC 2.27 L (3.80-5.40) m/uL Hgb 6.5 L* (11.4-16.0) gm/dL Hct 21.5 L (34.0-46.0) % MCHC 30.4 L (31.0-37.0) g/dL RDW 17.8 H (11.5-15.5) % Plt Count 18 L* (150-450) k/uL Neutrophils # (Manual) 0.60 L (1.3-7.7) k/uL Lymphocytes # (Manual) 0.52 L (1.0-4.8) k/uL Nucleated RBCs 1 H (0-0) /100 WBC Sodium 135 L (137-145) mmol/L Chloride 118 H (98-107) mmol/L Carbon Dioxide 14 L (22-30) mmol/L BUN 31 H (7-17) mg/dL POC Glucose (mg/dL) (75-99) mg/dL Calcium 6.9 L (8.4-10.2) mg/dL Amylase <30 L (30-110) U/L Lipase <10 L (23-300) U/L Urine Protein (Negative) Urine Ketones (Negative) Urine Nitrite (Negative) Ur Leukocyte Esterase (Negative) Urine WBC (0-5) /hpf Urine Bacteria (None) /hpf Urine Mucus (None) /hpf Crossmatch 06/22/18 Range/Units 08:08 WBC (3.8-10.6) k/uL RBC (3.80-5.40) m/uL Hgb (11.4-16.0) gm/dL Hct (34.0-46.0) % MCHC (31.0-37.0) g/dL RDW (11.5-15.5) % Plt Count (150-450) k/uL Neutrophils # (Manual) (1.3-7.7) k/uL Lymphocytes # (Manual) (1.0-4.8) k/uL Nucleated RBCs (0-0) /100 WBC Sodium (137-145) mmol/L Chloride (98-107) mmol/L Carbon Dioxide (22-30) mmol/L BUN (7-17) mg/dL POC Glucose (mg/dL) (75-99) mg/dL Calcium (8.4-10.2) mg/dL Amylase (30-110) U/L Lipase (23-300) U/L Urine Protein (Negative) Urine Ketones (Negative) Urine Nitrite (Negative) Ur Leukocyte Esterase (Negative) Urine WBC (0-5) /hpf Urine Bacteria (None) /hpf Urine Mucus (None) /hpf Crossmatch See Detail Microbiology - Last 24 Hours (Table) 06/20/18 21:18 Blood Culture - Preliminary Blood No Growth after 24 hours Assessment and Plan Plan: (1) Hypotension Narrative/Plan: - Fluid resuscitation. - Pt was given solucortef. - BP stable remains low - Cont fluid support, encourage oral intake Current Visit: Yes Status: Acute Priority: High Code(s): I95.9 - HYPOTENSION, UNSPECIFIED SNOMED Code(s): 69607966 (2) Pancytopenia Narrative/Plan: - secondary to myelofibrosis and myelodysplastic syndrome. Only irradiated blood products. No GCSF. - transfuse one unit or Irradiated PRBC today and anticipate another unit this weekend - With the degree of her pancytopenia from her underlying disease she is unable to receive treatment as the risk of further cytopenias is high. - Blood cultures/Manzanares cultures pending and negative to date - vancomycin and cefepime while neutropenia and hypotensive. Current Visit: Yes Status: Acute Priority: High Code(s): D61.818 - OTHER PANCYTOPENIA SNOMED Code(s): 352893056 (3) Myelofibrosis - Follows with Dr. Salas in outpatient setting Current Visit: Yes Status: Acute Priority: High Code(s): D75.81 - MYELOFIBROSIS SNOMED Code(s): 30109258 (4) Myelodysplastic syndrome Current Visit: Yes Status: Acute Priority: High Code(s): D46.9 - MYELODYSPLASTIC SYNDROME, UNSPECIFIED SNOMED Code(s): 520081916 (5) Chronic Illness Myopathy: - Physical therapy for improved performance status, with safety considerations - Monitor Hypotension, risk falls, Risks bleeding. Plan: - Await Dr. Salas's converstion with [facility] lead to determine plan moving forward, in the mean time continue supportive care with transfusions, physical therapy, and initial work-up in preparation for potential transplant - Irradiated blood products only
--- NOTE | 2018-06-22 11:45 | ECHOF ---
Referral Reason:baseline, evaluation for BMT MEASUREMENTS -------- HEIGHT: 172.7 cm WEIGHT: 64.0 kg BP: 84/51 RVIDd: 3.0 cm (< 3.3) IVSd: 1.0 cm (0.6 - 1.1) LVIDd: 3.7 cm (3.9 - 5.3) LVPWd: 1.0 cm (0.6 - 1.1) IVSs: 1.1 cm LVIDs: 2.3 cm LVPWs: 1.8 cm LAESV Index (A-L): 17.58 ml/m Ao Diam: 2.8 cm (2.0 - 3.7) AV Cusp: 1.9 cm (1.5 - 2.6) LA Diam: 2.8 cm (2.7 - 3.8) MV EXCURSION: 15.792 mm (> 18.000) MV EF SLOPE: 81 mm/s (70 - 150) EPSS: 0.4 cm MV E Hayden: 0.85 m/s MV DecT: 373 ms MV A Hayden: 1.40 m/s MV E/A Ratio: 0.61 RAP: 5.00 mmHg RVSP: 47.82 mmHg FINDINGS -------- Sinus rhythm. This was a technically good study. The left ventricular size is normal. Left ventricular wall thickness is normal. Overall left vent ricular systolic function is normal with, an EF between 55 - 60 %. The right ventricle is normal in size and function. Normal LA size by volume 22+/-6 ml/m2. The right atrium is normal in size. The aortic valve is trileaflet, and appears structurally normal. No aortic stenosis or regurgitation. The mitral valve is normal. Mild mitral regurgitation is present. Mild tricuspid regurgitation present. There is mild pulmonary hypertension. The right ventricular systolic pressure, as measured by Doppler, is 47.82mmHg. The pulmonic valve was not well visualized. There is no pulmonic regurgitation present. The aortic root size is normal. Normal inferior vena cava with normal inspiratory collapse consistent with estimated right atrial pre ssure of 5 mmHg. There is a small, generalized pericardial effusion present. CONCLUSIONS -------- 1. Sinus rhythm. 2. This was a technically good study. 3. The left ventricular size is normal. 4. Left ventricular wall thickness is normal. 5. Overall left ventricular systolic function is normal with, an EF between 55 - 60 %. 6. Normal LA size by volume 22+/-6 ml/m2. 7. The aortic valve is trileaflet, and appears structurally normal. No aortic stenosis or regurgitati on. 8. Mild mitral regurgitation is present. 9. Mild tricuspid regurgitation present. 10. There is mild pulmonary hypertension. 11. The pulmonic valve was not well visualized. 12. The aortic root size is normal. 13. There is a small, generalized pericardial effusion present. MATERIAL REQUISITIONER: Raffy Reyes RDCS
--- NOTE | 2018-06-22 13:22 | P.CONS ---
History of Present Illness - Reason for Consult Consult date: 06/22/18 Sepsis - History of Present Illness This is a 68-year-old female previously diagnosed with primary myelofibrosis and myelodysplastic dysplastic syndrome in 2017. The patient is scheduled for bone marrow transplant in September 2018. Patient is complaining of significant weakness, fatigue, poor appetite. She denies having any fever or chills. No nausea or vomiting. No diarrhea. She was at oncology office and attempted fluid resuscitation was done the patient was then sent into the hospital for further evaluation and antibiotics. Currently white count is 1.3, hemoglobin 6.5 and she was scheduled for 1 unit of packed RBCs today. Platelet count is 18. Creatinine 0.57, lactic acid was 1.4. Troponins were negative on 3 draws. Albumin 1.4, amylase and lipase were normal and cortisol level was normal. Urinalysis was nitrate positive, leukoesterase small, WBC 28 and bacteria few. Patient does complain of dysuria prior to admission. She currently has a Ardon catheter that is quite uncomfortable for her. Chest x- ray done today shows basilar atelectasis versus pneumonia, effusion. Echocardiogram reveals EF of 55-60%, mild mitral regurgitation mild tricuspid regurgitation, no pulmonary hypertension. No mention of vegetation. Blood cultures are no growth after 24 hours. Patient states that she is not feeling any better since arrival. Review of Systems All systems: negative Constitutional: Reports anorexia, Reports chills, Reports fatigue, Reports lethargy, Reports malaise, Reports night sweats, Reports poor appetite, Reports weakness, Denies fever Eyes: denies blurred vision, denies pain Ears, nose, mouth and throat: Denies dental pain, Denies dysphagia, Denies headache, Denies mouth pain, Denies sore throat, Denies vertigo Cardiovascular: Denies chest pain, Denies dyspnea on exertion, Denies edema, Denies leg edema, Denies shortness of breath, Denies syncope Respiratory: Reports cough (Occasional), Denies cough with sputum, Denies dyspnea, Denies excessive sputum, Denies hemoptysis, Denies home oxygen, Denies wheezing Gastrointestinal: Reports abdominal pain, Reports loss of appetite, Reports nausea, Denies diarrhea, Denies vomiting Genitourinary: Reports dysuria, Denies hematuria Musculoskeletal: Reports muscle weakness, Denies frequent falls, Denies gait dysfunction, Denies myalgias Integumentary: Denies pruritus, Denies rash, Denies wounds Neurological: Denies aphasia, Denies change in mentation, Denies confusion, Denies convulsions, Denies gait dysfunction, Denies numbness, Denies weakness Psychiatric: Denies anxiety, Denies depression Endocrine: Denies fatigue, Denies weight change Past Medical History Past Medical History: Cancer, Pneumonia Additional Past Medical History / Comment(s): myelofibrosis and myelodysplastic dysplastic syndrome History of Any Multi-Drug Resistant Organisms: None Reported Past Surgical History: Breast Surgery, Cholecystectomy, Joint Replacement, Orthopedic Surgery, Tubal Ligation Additional Past Surgical History / Comment(s): Total rt hip arthroplasty, R breast cyst removal, ganglion cyst removed on right wrist, bunion and toe shortened left foot, Past Anesthesia/Blood Transfusion Reactions: No Reported Reaction Past Psychological History: No Psychological Hx Reported Additional Psychological History / Comment(s): Pt resides with her spouse. Patient uses a walker/cane/ wheelchair depending on situation. Smoking Status: Former smoker Past Alcohol Use History: None Reported Additional Past Alcohol Use History / Comment(s): Pt states she started smoking in 1975, 1 ppd smoker and quit 3 years ago. She denies any marijuana, illicit drug use or alcohol use. She lives at home with her . There are no pets in the home. She has traveled to [place] to visit her daughter and she and her used to travel to [place] on a yearly basis.. Past Drug Use History: None Reported - Past Family History Father Family Medical History: No Reported History Additional Family Medical History / Comment(s): Father was healthy. He in his 70's. Alcoholic. Mother Family Medical History: Diabetes Mellitus Additional Family Medical History / Comment(s): Mother has passed now. Brother(s) Family Medical History: Cancer Additional Family Medical History / Comment(s): LUNG CANCER Medications and Allergies Home Medications Medication Instructions Recorded Confirmed Type No Known Home Medications 01/07/16 06/20/18 History Allergies Allergy/AdvReac Type Severity Reaction Status Date / Time No Known Allergies Allergy Verified 06/20/18 18:18 Physical Exam Vitals: Vital Signs Temp Pulse Pulse Pulse Resp BP BP 06/22/18 09:00 89 16 91/52 06/22/18 08:10 21 06/22/18 08:00 97.6 F 97 21 97/53 06/22/18 07:46 06/22/18 07:00 92 17 91/53 06/22/18 06:00 86 23 97/47 06/22/18 05:00 92 18 88/46 06/22/18 04:00 97.9 F 87 17 93/51 06/22/18 03:00 88 18 88/49 06/22/18 02:00 87 14 102/50 06/22/18 01:00 91 17 97/46 06/22/18 00:00 92 18 94/48 06/21/18 23:00 90 20 94/46 06/21/18 22:00 88 15 98/50 06/21/18 21:00 92 18 97/57 06/21/18 20:52 92 20 97/57 06/21/18 20:50 92 25 H 97/57 06/21/18 20:40 91 10 L 97/57 06/21/18 20:30 93 20 98/54 06/21/18 20:20 96 30 H 96/51 06/21/18 20:10 93 20 101/54 18 20:00 93 23 115/54 06/21/18 19:50 92 21 108/52 06/21/18 19:40 93 33 H 98/61 06/21/18 19:30 90 24 94/59 18 19:20 89 17 95/47 06/21/18 19:10 92 18 99/55 06/21/18 19:00 92 19 97/56 06/21/18 18:50 90 21 91/50 18 18:40 85 20 95/48 18 18:30 88 22 90/45 18 18:20 82 17 92/53 18 18:18 92/53 18 17:27 88 96/62 06/21/18 12:07 97.4 F L 85 17 84/51 Pulse Ox 06/22/18 09:00 97 06/22/18 08:10 06/22/18 08:00 94 L 06/22/18 07:46 92 L 06/22/18 07:00 92 L 06/22/18 06:00 06/22/18 05:00 92 L 06/22/18 04:00 95 12/14/18 03:00 82 L 06/22/18 02:00 93 L 06/22/18 01:00 91 L 06/22/18 00:00 96 06/21/18 23:00 96 06/21/18 22:00 96 06/21/18 21:00 93 L 06/21/18 20:52 91 L 06/21/18 20:50 98 06/21/18 20:40 88 L 06/21/18 20:30 85 L 06/21/18 20:20 81 L 06/21/18 20:10 97 06/21/18 20:00 85 L 06/21/18 19:50 73 L 06/21/18 19:40 85 L 06/21/18 19:30 86 L 06/21/18 19:20 90 L 06/21/18 19:10 90 L 06/21/18 19:00 81 L 06/21/18 18:50 06/21/18 18:40 06/21/18 18:30 06/21/18 18:20 06/21/18 18:18 86 L 06/21/18 17:27 06/21/18 12:07 96 Intake and Output 06/21/18 06/22/18 06/22/18 22:59 06:59 14:59 Intake Total 250 250 725 Output Total 525 370 115 Balance -275 -120 610 Intake: IV 250 250 725 Cefepime 2 gm In Sodium 100 Chloride 0.9% 50 ml @ 100 mls/hr IVPB Q8H [facility] Rx#: [id number] Sodium Chloride 0.9% 1, 250 250 375 000 ml @ 125 mls/hr IV . Q8H [facility] Rx#:[id number] Vancomycin 1,250 mg In 250 Sodium Chloride 0.9% 250 ml @ 125 mls/hr IVPB Q12H DNOALD Rx#:[id number] Output: Urine 525 370 115 Other: Voiding Method Bedside Commode Indwelling Catheter Weight 64.7 kg Gen: This is a thin 68-year-old female she is an ICU bed and appears to be comfortable and in no acute distress. HEENT: Head is atraumatic, normocephalic. Pupils equal, round. Sclerae is anicteric. Conjunctiva pale. Mucous members of the mouth are moist. There is a lesion on the tip of the tongue the right side. NECK: Supple. No JVD. No lymphadenopathy. No thyromegaly. LUNGS: Clear to auscultation. No wheezes or rhonchi. No intercostal retractions. HEART: Regular rate and rhythm. No murmur. ABDOMEN: Soft. Bowel sounds are present. No masses. No tenderness. EXTREMITIES: No pedal edema. No calf tenderness. NEUROLOGICAL: Patient is awake, alert and oriented x3. Appropriate affect. Results Results: Laboratory Results WBC 1.3 k/uL (3.8-10.6) L* 06/22/18 05:47 RBC 2.27 m/uL (3.80-5.40) L 06/22/18 05:47 Hgb 6.5 gm/dL (11.4-16.0) L* 06/22/18 05:47 Hct 21.5 % (34.0-46.0) L 06/22/18 05:47 MCV 94.8 fL (80.0-100.0) 06/22/18 05:47 MCH 28.8 pg (25.0-35.0) 06/22/18 05:47 MCHC 30.4 g/dL (31.0-37.0) L 06/22/18 05:47 RDW 17.8 % (11.5-15.5) H 06/22/18 05:47 Plt Count 18 k/uL (150-450) L* 06/22/18 05:47 Neutrophils % (Manual) 46 % 06/22/18 05:47 Band Neutrophils % 2 % 06/22/18 05:47 Lymphocytes % (Manual) 40 % 06/22/18 05:47 Monocytes % (Manual) 11 % 06/22/18 05:47 Eosinophils % (Manual) 2 % 06/22/18 05:47 Neutrophils # (Manual) 0.60 k/uL (1.3-7.7) L 06/22/18 05:47 Lymphocytes # (Manual) 0.52 k/uL (1.0-4.8) L 06/22/18 05:47 Monocytes # (Manual) 0.14 k/uL (0-1.0) 06/22/18 05:47 Eosinophils # (Manual) 0.03 k/uL (0-0.7) 06/22/18 05:47 Nucleated RBCs 1 /100 WBC (0-0) H 06/22/18 05:47 Manual Slide Review Performed 06/22/18 05:47 Large Platelets Present 06/22/18 05:47 Polychromasia Present 06/22/18 05:47 Hypochromasia Marked 06/22/18 05:47 Poikilocytosis (manual Present 06/22/18 05:47 Basophilic Stippling Present 06/20/18 18:02 Anisocytosis Slight 06/22/18 05:47 Anisocytosis (manual) Present 06/20/18 18:02 Macrocytosis Slight 06/22/18 05:47 PT 13.5 sec (9.0-12.0) H 06/20/18 18:02 INR 1.3 (<1.2) H 06/20/18 18:02 APTT 27.3 sec (22.0-30.0) 06/20/18 18:02 Sodium 135 mmol/L (137-145) L 06/22/18 05:47 Potassium 4.0 mmol/L (3.5-5.1) 06/22/18 05:47 Chloride 118 mmol/L (98-107) H 06/22/18 05:47 Carbon Dioxide 14 mmol/L (22-30) L 06/22/18 05:47 Anion Gap 3 mmol/L 06/22/18 05:47 BUN 31 mg/dL (7-17) H 06/22/18 05:47 Creatinine 0.57 mg/dL (0.52-1.04) 06/22/18 05:47 Est GFR (CKD-EPI)AfAm >90 (>60 ml/min/1.73 sqM) 06/22/18 05:47 Est GFR (CKD-EPI)NonAf >90 (>60 ml/min/1.73 sqM) 06/22/18 05:47 Glucose 96 mg/dL (74-99) 06/22/18 05:47 POC Glucose (mg/dL) 117 mg/dL (75-99) H 06/21/18 18:14 POC Glu Director [facility] Masoud Sethi 06/21/18 18:14 Lactic Ac Sepsis Rflx Y 06/20/18 19:08 Plasma Lactic Acid Bobby 1.4 mmol/L (0.7-2.0) 06/20/18 22:35 Calcium 6.9 mg/dL (8.4-10.2) L 06/22/18 05:47 Magnesium 2.1 mg/dL (1.6-2.3) 06/22/18 05:47 Total Bilirubin 1.2 mg/dL (0.2-1.3) 06/20/18 18:02 AST 15 U/L (14-36) 06/20/18 18:02 ALT 37 U/L (9-52) 06/20/18 18:02 Alkaline Phosphatase 27 U/L (38-126) L 06/20/18 18:02 Total Creatine Kinase <20 U/L (30-135) L 06/21/18 07:18 CK-MB (CK-2) 0.8 ng/mL (0.0-2.4) 06/21/18 07:18 CK-MB (CK-2) Rel Index 06/21/18 07:18 Troponin I <0.012 ng/mL (0.000-0.034) 06/22/18 08:17 Total Protein 3.1 g/dL (6.3-8.2) L 06/20/18 18:02 Albumin 1.4 g/dL (3.5-5.0) L 06/20/18 18:02 Amylase <30 U/L (30-110) L 06/21/18 19:57 Lipase <10 U/L (23-300) L 06/21/18 19:57 Cortisol 21 ug/dL 06/22/18 05:47 Urine Color Yellow 06/20/18 14:17 Urine Appearance Clear (Clear) 06/20/18 14:17 Urine pH 6.0 (5.0-8.0) 06/20/18 14:17 Ur Specific [place] 1.018 (1.001-1.035) 06/20/18 14:17 Urine Protein 1+ (Negative) H 06/20/18 14:17 Urine Glucose (UA) Negative (Negative) 06/20/18 14:17 Urine Ketones Trace (Negative) H 06/20/18 14:17 Urine Blood Negative (Negative) 06/20/18 14:17 Urine Nitrite Positive (Negative) H 06/20/18 14:17 Urine Bilirubin Negative (Negative) 06/20/18 14:17 Urine Urobilinogen <2.0 mg/dL (<2.0) 06/20/18 14:17 Ur Leukocyte Esterase Small (Negative) H 06/20/18 14:17 Urine WBC 28 /hpf (0-5) H 06/20/18 14:17 Ur Squamous Epith Cells 2 /hpf (0-4) 06/20/18 14:17 Urine Bacteria Few /hpf (None) H 06/20/18 14:17 Urine Mucus Few /hpf (None) H 06/20/18 14:17 Blood Type A Positive 06/22/18 08:08 Blood Type Recheck No 06/22/18 08:08 Antibody Screen NEGATIVE 06/22/18 08:08 Crossmatch See Detail 06/22/18 08:08 Spec Expiration Date 06/25/2018230706/22/18 08:08 CBC & Chem 7: 06/24/18 07:05 06/24/18 07:05 Labs: Abnormal Lab Results - Last 24 Hours (Table) 06/20/18 06/21/18 06/21/18 Range/Units 14:17 07:18 18:14 WBC 1.3 L* (3.8-10.6) k/uL RBC (3.80-5.40) m/uL Hgb (11.4-16.0) gm/dL Hct (34.0-46.0) % MCHC (31.0-37.0) g/dL RDW (11.5-15.5) % Plt Count (150-450) k/uL Neutrophils # (Manual) (1.3-7.7) k/uL Lymphocytes # (Manual) (1.0-4.8) k/uL Nucleated RBCs (0-0) /100 WBC Sodium (137-145) mmol/L Chloride (98-107) mmol/L Carbon Dioxide (22-30) mmol/L BUN (7-17) mg/dL POC Glucose (mg/dL) 117 H (75-99) mg/dL Calcium (8.4-10.2) mg/dL Amylase (30-110) U/L Lipase (23-300) U/L Urine Protein 1+ H (Negative) Urine Ketones Trace H (Negative) Urine Nitrite Positive H (Negative) Ur Leukocyte Esterase Small H (Negative) Urine WBC 28 H (0-5) /hpf Urine Bacteria Few H (None) /hpf Urine Mucus Few H (None) /hpf Crossmatch 06/21/18 06/22/18 06/22/18 Range/Units 19:57 05:47 05:47 WBC 1.3 L* (3.8-10.6) k/uL RBC 2.27 L (3.80-5.40) m/uL Hgb 6.5 L* (11.4-16.0) gm/dL Hct 21.5 L (34.0-46.0) % MCHC 30.4 L (31.0-37.0) g/dL RDW 17.8 H (11.5-15.5) % Plt Count 18 L* (150-450) k/uL Neutrophils # (Manual) 0.60 L (1.3-7.7) k/uL Lymphocytes # (Manual) 0.52 L (1.0-4.8) k/uL Nucleated RBCs 1 H (0-0) /100 WBC Sodium 135 L (137-145) mmol/L Chloride 118 H (98-107) mmol/L Carbon Dioxide 14 L (22-30) mmol/L BUN 31 H (7-17) mg/dL POC Glucose (mg/dL) (75-99) mg/dL Calcium 6.9 L (8.4-10.2) mg/dL Amylase <30 L (30-110) U/L Lipase <10 L (23-300) U/L Urine Protein (Negative) Urine Ketones (Negative) Urine Nitrite (Negative) Ur Leukocyte Esterase (Negative) Urine WBC (0-5) /hpf Urine Bacteria (None) /hpf Urine Mucus (None) /hpf Crossmatch 06/22/18 Range/Units 08:08 WBC (3.8-10.6) k/uL RBC (3.80-5.40) m/uL Hgb (11.4-16.0) gm/dL Hct (34.0-46.0) % MCHC (31.0-37.0) g/dL RDW (11.5-15.5) % Plt Count (150-450) k/uL Neutrophils # (Manual) (1.3-7.7) k/uL Lymphocytes # (Manual) (1.0-4.8) k/uL Nucleated RBCs (0-0) /100 WBC Sodium (137-145) mmol/L Chloride (98-107) mmol/L Carbon Dioxide (22-30) mmol/L BUN (7-17) mg/dL POC Glucose (mg/dL) (75-99) mg/dL Calcium (8.4-10.2) mg/dL Amylase (30-110) U/L Lipase (23-300) U/L Urine Protein (Negative) Urine Ketones (Negative) Urine Nitrite (Negative) Ur Leukocyte Esterase (Negative) Urine WBC (0-5) /hpf Urine Bacteria (None) /hpf Urine Mucus (None) /hpf Crossmatch See Detail Microbiology - Last 24 Hours (Table) 06/20/18 21:18 Blood Culture - Preliminary Blood No Growth after 24 hours Assessment and Plan Plan: This is a 68-year-old female who presented to the hospital with neutropenia with underlying history of myelofibrosis and mild dysplastic syndrome being considered for bone marrow transplant in September 2018, pancytopenia , hypotension not requiring vasopressors and possible urinary tract infection. Patient is status post IV fluid bolus. She is scheduled for transfusion of one unit of packed RBCs. Antibiotics are currently in the form of cefepime and vancomycin which will be continued. Continue supportive care. Further recommendations as patient progresses. The above dictated assessment and findings were discussed with Dr. Trejo. The impression and plan of care have been directed as dictated. Jackelyn Olmstead nurse practitioner acting as scribe for Dr. Trejo.
--- NOTE | 2018-06-22 13:42 | P.PN ---
Subjective Progress Note Date: 06/22/18 Principal diagnosis: Acute neutropenic sepsis This 68-year-old white female patient with history of miyelodysplastic syndrome , who is being considered for bone marrow transplant, presented to her medical oncologist office yesterday for monitoring and transfusions. Patient was noted to be very weak, fatigued, hypotensive. She denied any fevers, patient has been unable to eat related to severe sharp epigastric discomfort after eating. No vomiting or diarrhea. She was sent to the hospital for further evaluation and treatment, on admission was in the 70s over 40s, she was given 2 L IV fluid bolus. Lactic acid was mildly elevated at 2.1, blood work revealed pancytopenia , WBC of 1.6, hemoglobin of 7.7, platelet count of 21, INR is 1.3, sodium is 131 , potassium is 4.7, chloride is 109, CO2 is 18 BUN of 30 and creatinine of 0.53 , bun is negative 3, urinalysis showed white blood cells, small amount of leuks , few bacteria and mucus. Blood cultures were drawn and pending at this time, patient was started on broad-spectrum antibiotic in the form of cefepime. She was given a dose of IV hydrocortisone in the emergency department, chest x-ray showed mild pulmonary congestion, and blunting of the costophrenic angles consistent for congestive heart failure small bilateral pleural effusions. He was given a dose of IV Lasix in the emergency department. Patient was then admitted to the oncology floor, and her blood pressures remain hypotensive 84/ 51, she appears to be pale and fatigued, denies acute distress unless she eats. Afebrile. Serum cortisol is been ordered. Reevaluated today on 06/22/2018, patient was transferred to the ICU yesterday after I saw her. Did not require any pressors overnight, her mean arterial pressure is in the 65 range, patient responded well to fluids, and her urine output has been excellent. Patient remains on broad-spectrum antibiotics, remains on cefepime and vancomycin. Hemoglobin is noted to be low today at 6.5 , hence we'll arrange for a unit of packed RBCs to be given before we transfer the patient back to the ICU plan oncology floor. In the meantime the cultures remain negative, and antibiotics as ordered will remain on board temporarily. The patient denies any cough wheezing or shortness of breath denies any chest pain no nausea no vomiting no abdominal pain, she just feels generally weak. WBC count remains low at 1.3 hemoglobin is 6.5 platelets are 18,000. Basic metabolic profile and renal profile are relatively normal she does have low bicarb, and the patient has what looks like a non-anion gap hyperchloremic metabolic acidosis. Objective - Vital Signs Vital signs: Vital Signs Temp 97.6 F 06/22/18 12:00 Pulse 96 06/22/18 13:00 Resp 23 06/22/18 13:00 BP 98/75 06/22/18 13:00 Pulse Ox 94 L 06/22/18 13:00 Intake & Output 06/21/18 06/22/18 06/22/18 18:59 06:59 18:59 Intake Total 265 292 6648 Output Total 895 260 Balance 600 -395 965 Weight 63.957 kg 64.7 kg Intake: IV 500 1225 Cefepime 2 gm In Sodium 100 Chloride 0.9% 50 ml @ 100 mls/hr IVPB Q8H [facility] Rx#: [id number] Sodium Chloride 0.9% 1, 500 625 000 ml @ 125 mls/hr IV . Q8H [facility] Rx#:[id number] Vancomycin 1,250 mg In 500 Sodium Chloride 0.9% 250 ml @ 125 mls/hr IVPB Q12H [facility] Rx#:[id number] Intake, IV Titration 600 Amount Sodium Chloride 0.9% 1, 600 000 ml @ 125 mls/hr IV . Q8H [facility] Rx#:[id number] Blood Product 0 Rc Irr As1 Unit 0 [id number] Output: Urine 895 260 Other: Voiding Method Bedside Commode Bedside Commode Indwelling Catheter # Voids 1 # Bowel Movements 1 - Exam GENERAL EXAM: Alert, pleasant, pale 68-year-old white female, in no distress HEENT: PERRLA, EOMI, pale conjunctivae, no icterus, dry mucous membranes, no neck masses, no JVD, no stridor. CHEST: No chest wall deformity. Symmetrical expansion. LUNGS: Equal air entry no crackles, no rhonchi no wheezes. CVS: Regular rate and rhythm, normal S1 and S2, no gallops, no murmurs, no rubs ABDOMEN: Soft, nontender. No hepatosplenomegaly, normal bowel sounds, no guarding or rigidity. EXTREMITIES: No clubbing, no edema, no cyanosis, 2+ pulses and upper and lower extremities. MUSCULOSKELETAL: Muscle strength and tone normal. SPINE: No scoliosis or deformity SKIN: No rashes CENTRAL NERVOUS SYSTEM: Alert and oriented -3. No focal deficits, tone is normal in all 4 extremities. PSYCHIATRIC: Alert and oriented -3. Appropriate affect. Intact judgment and insight. - Labs CBC & Chem 7: 06/22/18 05:47 06/22/18 05:47 Labs: Abnormal Lab Results - Last 24 Hours (Table) 06/20/18 06/21/18 06/21/18 Range/Units 14:17 07:18 18:14 WBC 1.3 L* (3.8-10.6) k/uL RBC (3.80-5.40) m/uL Hgb (11.4-16.0) gm/dL Hct (34.0-46.0) % MCHC (31.0-37.0) g/dL RDW (11.5-15.5) % Plt Count (150-450) k/uL Neutrophils # (Manual) (1.3-7.7) k/uL Lymphocytes # (Manual) (1.0-4.8) k/uL Nucleated RBCs (0-0) /100 WBC Sodium (137-145) mmol/L Chloride (98-107) mmol/L Carbon Dioxide (22-30) mmol/L BUN (7-17) mg/dL POC Glucose (mg/dL) 117 H (75-99) mg/dL Calcium (8.4-10.2) mg/dL Amylase (30-110) U/L Lipase (23-300) U/L Urine Protein 1+ H (Negative) Urine Ketones Trace H (Negative) Urine Nitrite Positive H (Negative) Ur Leukocyte Esterase Small H (Negative) Urine WBC 28 H (0-5) /hpf Urine Bacteria Few H (None) /hpf Urine Mucus Few H (None) /hpf Crossmatch 06/21/18 06/22/18 06/22/18 Range/Units 19:57 05:47 05:47 WBC 1.3 L* (3.8-10.6) k/uL RBC 2.27 L (3.80-5.40) m/uL Hgb 6.5 L* (11.4-16.0) gm/dL Hct 21.5 L (34.0-46.0) % MCHC 30.4 L (31.0-37.0) g/dL RDW 17.8 H (11.5-15.5) % Plt Count 18 L* (150-450) k/uL Neutrophils # (Manual) 0.60 L (1.3-7.7) k/uL Lymphocytes # (Manual) 0.52 L (1.0-4.8) k/uL Nucleated RBCs 1 H (0-0) /100 WBC Sodium 135 L (137-145) mmol/L Chloride 118 H (98-107) mmol/L Carbon Dioxide 14 L (22-30) mmol/L BUN 31 H (7-17) mg/dL POC Glucose (mg/dL) (75-99) mg/dL Calcium 6.9 L (8.4-10.2) mg/dL Amylase <30 L (30-110) U/L Lipase <10 L (23-300) U/L Urine Protein (Negative) Urine Ketones (Negative) Urine Nitrite (Negative) Ur Leukocyte Esterase (Negative) Urine WBC (0-5) /hpf Urine Bacteria (None) /hpf Urine Mucus (None) /hpf Crossmatch 06/22/18 Range/Units 08:08 WBC (3.8-10.6) k/uL RBC (3.80-5.40) m/uL Hgb (11.4-16.0) gm/dL Hct (34.0-46.0) % MCHC (31.0-37.0) g/dL RDW (11.5-15.5) % Plt Count (150-450) k/uL Neutrophils # (Manual) (1.3-7.7) k/uL Lymphocytes # (Manual) (1.0-4.8) k/uL Nucleated RBCs (0-0) /100 WBC Sodium (137-145) mmol/L Chloride (98-107) mmol/L Carbon Dioxide (22-30) mmol/L BUN (7-17) mg/dL POC Glucose (mg/dL) (75-99) mg/dL Calcium (8.4-10.2) mg/dL Amylase (30-110) U/L Lipase (23-300) U/L Urine Protein (Negative) Urine Ketones (Negative) Urine Nitrite (Negative) Ur Leukocyte Esterase (Negative) Urine WBC (0-5) /hpf Urine Bacteria (None) /hpf Urine Mucus (None) /hpf Crossmatch See Detail Microbiology - Last 24 Hours (Table) 06/20/18 21:18 Blood Culture - Preliminary Blood No Growth after 24 hours Assessment and Plan Assessment: #1. Acute Neutropenic sepsis #2. Myelodysplastic syndrome and myelofibrosis, being considered for bone marrow transplant #3. Pancytopenia, patient will be given a unit of packed RBCs today, and I will let oncology decide on her platelets whether she needs to have a platelet transfusion. #4. Hypotension, weakness, fatigue, anorexia, improved with fluids and empiric antibiotics. #5. Epigastric discomfort, resolved #6. Non-anion gap metabolic acidosis #7. Hyponatremia #8. Nicotine dependence in remission #9 non-anion gap hyperchloremic metabolic acidosis. Recommendation: Continue IV fluids, transfuse a unit of packed RBCs, continue antibiotics, continue GI and DVT prophylaxis, consider transferring the patient back to oncology, will continue to follow closely. Echocardiogram report was reviewed, and it seems to be relatively unremarkable. Time with Patient: Less than 30
--- NOTE | 2018-06-22 18:19 | P.PN ---
Subjective Progress Note Date: 06/22/18 The patient was transferred to the ICU because of hypotension and concern for sepsis. However blood pressure has improved and stabilized with the additional hydration. She is to be transferred back to the floor soon. She remains quite weak. Appetite is diminished. He continues to have some lower extremity swelling, and shortness of breath on exertion. No obvious bleeding noted. No fever/chills/vomiting/diarrhea Objective - Vital Signs Vital signs: Vital Signs Temp 97.5 F L 06/22/18 16:00 Pulse 101 H 06/22/18 17:00 Resp 24 06/22/18 17:00 BP 101/60 06/22/18 17:00 Pulse Ox 93 L 06/22/18 17:00 Intake & Output 06/21/18 06/22/18 06/22/18 18:59 06:59 18:59 Intake Total 223 163 1150 Output Total 895 865 Balance 600 -395 1045 Weight 63.957 kg 64.7 kg Intake: IV 500 1600 Cefepime 2 gm In Sodium 100 Chloride 0.9% 50 ml @ 100 mls/hr IVPB Q8H [facility] Rx#: [id number] Sodium Chloride 0.9% 1, 500 1000 000 ml @ 125 mls/hr IV . Q8H [facility] Rx#:[id number] Vancomycin 1,250 mg In 500 Sodium Chloride 0.9% 250 ml @ 125 mls/hr IVPB Q12H [facility] Rx#:[id number] Intake, IV Titration 600 Amount Sodium Chloride 0.9% 1, 600 000 ml @ 125 mls/hr IV . Q8H [facility] Rx#:[id number] Blood Product 310 Rc Irr As1 Unit 310 [id number] Output: Urine 895 865 Other: Voiding Method Bedside Commode Bedside Commode Indwelling Catheter # Voids 1 # Bowel Movements 1 - Constitutional General appearance: Present: no acute distress - EENT Eyes: Present: EOMI ENT: Present: hearing grossly normal, normal oropharynx - Respiratory Respiratory: bilateral: diminished - Cardiovascular Rhythm: regular Heart sounds: normal: S1, S2 - Gastrointestinal General gastrointestinal: Present: normal bowel sounds, soft - Integumentary Integumentary Comment(s): Scattered bruises - Neurologic Neurologic: Present: CNII-XII intact - Musculoskeletal Musculoskeletal: Present: generalized weakness, strength equal bilaterally - Psychiatric Psychiatric: Present: A&O x's 3, appropriate affect - Labs CBC & Chem 7: 06/22/18 05:47 06/22/18 05:47 Labs: Abnormal Lab Results - Last 24 Hours (Table) 06/21/18 06/21/18 06/21/18 Range/Units 07:18 18:14 19:57 WBC 1.3 L* (3.8-10.6) k/uL RBC (3.80-5.40) m/uL Hgb (11.4-16.0) gm/dL Hct (34.0-46.0) % MCHC (31.0-37.0) g/dL RDW (11.5-15.5) % Plt Count (150-450) k/uL Neutrophils # (Manual) (1.3-7.7) k/uL Lymphocytes # (Manual) (1.0-4.8) k/uL Nucleated RBCs (0-0) /100 WBC Sodium (137-145) mmol/L Chloride (98-107) mmol/L Carbon Dioxide (22-30) mmol/L BUN (7-17) mg/dL POC Glucose (mg/dL) 117 H (75-99) mg/dL Calcium (8.4-10.2) mg/dL Amylase <30 L (30-110) U/L Lipase <10 L (23-300) U/L Crossmatch 06/22/18 06/22/18 06/22/18 Range/Units 05:47 05:47 08:08 WBC 1.3 L* (3.8-10.6) k/uL RBC 2.27 L (3.80-5.40) m/uL Hgb 6.5 L* (11.4-16.0) gm/dL Hct 21.5 L (34.0-46.0) % MCHC 30.4 L (31.0-37.0) g/dL RDW 17.8 H (11.5-15.5) % Plt Count 18 L* (150-450) k/uL Neutrophils # (Manual) 0.60 L (1.3-7.7) k/uL Lymphocytes # (Manual) 0.52 L (1.0-4.8) k/uL Nucleated RBCs 1 H (0-0) /100 WBC Sodium 135 L (137-145) mmol/L Chloride 118 H (98-107) mmol/L Carbon Dioxide 14 L (22-30) mmol/L BUN 31 H (7-17) mg/dL POC Glucose (mg/dL) (75-99) mg/dL Calcium 6.9 L (8.4-10.2) mg/dL Amylase (30-110) U/L Lipase (23-300) U/L Crossmatch See Detail Microbiology - Last 24 Hours (Table) 06/20/18 21:18 Blood Culture - Preliminary Blood No Growth after 24 hours Assessment and Plan (1) Myelofibrosis Current Visit: Yes Status: Acute Priority: High Code(s): D75.81 - MYELOFIBROSIS SNOMED Code(s): 69527298 (2) Myelodysplastic syndrome Narrative/Plan: The patient has both mild fibrosis, and minor dysplastic syndrome. In addition she is showing rapid progression of both with decline in her counts, as well as multiple systemic symptoms leading to drastic drop in her performance status. Allogenic bone marrow transplant would be a treatment of choice in this case and the patient has already been evaluated by the BMT service at the [facility]. They advised the patient that at this time she was too weak to undergo the procedure and she will need to get stronger over the next few months therefore she can have it. The case was discussed with them. Given the patient's underlying disease showing rapid progression, it is quite unlikely that she would be able to get stronger without treatment of the underlying disease itself. There agreed that at this time the patient's performance status would essentially rule out her ability to withstand an allogenic transplant. Given the rapid progression and resultant symptoms from her underlying disease , the patient is unlikely to do well with supportive care alone. I therefore contacted her certified residential medication aide at [facility], Dr. Vazquez, and discussed the case with him. Because of having 2 separate conditions, both of which are showing aggressive behavior, our treatment options become quite limited, which treatment for one condition potentially having much higher risk of severe side effects due to the other . Therefore, unfortunately, options to try to improve the underlying disease, to where she can improved symptomatically to be able to be a candidate for bone marrow transplant, are very limited. According to his recommendations, I discussed treating the myelodysplastic syndrome with a hypomethylating chemotherapy, such as Dacogen, since her main complaint is cytopenias. While this is generally well-tolerated, it is certainly possible that side effects could be more marked given her poor performance status. In addition there is also a significant risk of this causing more severe cytopenias before any improvement can occur, which can compromise her condition even further. The medication may take anywhere from 2- 4 months to work, with a response rate in the 50-60% range (which is, however, in patients with usually much better performance status than her). A slow onset of response may not be adequate for her, given her fairly rapid progression. She and her had multiple questions which were answered to the best of my ability. Comfort care was also discussed. At this time they would like to discuss her options further and then let me know what her decision is. Currently she does seem to be inclined for active treatment. Continue to monitor and transfuse as needed. She received a unit of blood transfusion for low hemoglobin today. Current Visit: Yes Status: Acute Priority: High Code(s): D46.9 - MYELODYSPLASTIC SYNDROME, UNSPECIFIED SNOMED Code(s): 028374127 (3) Hypotension Narrative/Plan: Workup for infection, as well as other causes has been negative so far. The patient has responded to IV fluids. He is currently more stable in terms of her blood pressure. Continue current supportive care Current Visit: Yes Status: Acute Priority: High Code(s): I95.9 - HYPOTENSION, UNSPECIFIED SNOMED Code(s): 10870330
--- NOTE | 2018-06-22 18:19 | PN ---
PROGRESS NOTE DATE OF SERVICE: 06/22/2018 This 68-year-old woman who was admitted with acute hypertension with possible sepsis also had pulmonary edema and bilateral pneumonia. The patient also had pancytopenia secondary to myelodysplastic syndrome. The patient is receiving transfusions today. Hemoglobin was 7.1, today 6.5, platelets 18 and WBC 1.3. The patient is being closely monitored. Patient was transferred to ICU for close monitoring at this time. Past medical history reviewed. REVIEW OF SYSTEMS: CARDIOVASCULAR SYSTEM: No angina, palpitations. RESPIRATORY SYSTEM: As mentioned earlier. GI: As mentioned earlier. : No dysuria or retention. NERVOUS SYSTEM: No numbness, weakness.. CURRENT MEDICATIONS: Reviewed. They include: 1. Tylenol 650 p.r.n. 2. Cefepime 2 grams IV q.8. 3. Protonix 40 mg IV b.i.d. 4. Vancomycin. PHYSICAL EXAMINATION: Patient is alert, oriented x3. Pulse is 95, blood pressure 106/70, respiration 20, temperature 97.4, pulse ox 93% on room air. HEENT: Conjunctivae normal. Oral mucosa moist. NECK: No jugular venous distention. No carotid bruit. No lymph node enlargement. CARDIOVASCULAR SYSTEM: S1, S2 muffled. RESPIRATORY SYSTEM: Breath sounds diminished at the bases. Bilateral scattered rhonchi and crackles. ABDOMEN: Soft, non-tender. No mass palpable. LEGS: No edema. No swelling. NERVOUS SYSTEM: Higher functions as mentioned earlier. Moves all 4 limbs. No focal motor or sensory deficit. LYMPHATICS: No lymph node palpable in neck, axillae or groin. SKIN: No ulcer, rash, bleeding. LABS: WBC 1.3, hemoglobin 6.5, platelets 18. Sodium 135, potassium 4. ASSESSMENT: 1. Acute hypotension with possible severe sepsis. 2. Possible bilateral pneumonia and pulmonary edema. 3. Pancytopenia secondary to myelodysplastic syndrome with myelofibrosis. 4. Severe leukopenia. 5. Severe anemia, status of blood transfusion. 6. Hyponatremia. 7. Elevated plasma lactic acid, present on admission. 8. Hypoalbuminemia. 9. History of cholecystectomy. 10.History of degenerative joint disease. RECOMMENDATIONS AND DISCUSSION: I recommend to continue current medication, continue with symptomatic treatment. Otherwise at this time we will closely monitor. Continue the antibiotics. Transfusion. Hematology/oncology and pulmonary consultations. Guarded prognosis because of multiple complex medical issues. Further recommendations to follow. Will await cultures. See orders for further details. Prognosis guarded. MMODL / IJN: [id number] /
--- NOTE | 2018-06-22 23:13 | P.CON ---
Consult Note - . 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 The patient is scheduled for bone marrow transplant in September 2018. Patient is complaining of significant weakness, fatigue, poor appetite. She denies having any fever or chills. No nausea or vomiting. No diarrhea. She was at oncology office and attempted fluid resuscitation was done the patient was then sent into the hospital for further evaluation and antibiotics. Currently white count is 1.3, hemoglobin 6.5 and she was scheduled for 1 unit of packed RBCs today. Platelet count is 18. Creatinine 0.57, lactic acid was 1.4. Troponins were negative on 3 draws. Albumin 1.4, amylase and lipase were normal and cortisol level was normal. Urinalysis was nitrate positive, leukoesterase small, WBC 28 and bacteria few. Patient does complain of dysuria prior to admission. She currently has a Ardon catheter that is quite uncomfortable for her. Chest x- ray done today shows basilar atelectasis versus pneumonia, effusion. Echocardiogram reveals EF of 55-60%, mild mitral regurgitation mild tricuspid regurgitation, no pulmonary hypertension. No mention of vegetation. Blood cultures are no growth after 24 hours. Patient states that she is not feeling any better since arrival. Please see the consult note is dictated by nurse practitioner Jackelyn Olmstead. Pleasant woman that has long-standing history of hematological abnormalities in his developed myelodysplastic syndrome following a known diagnosis of primary myelofibrosis. She relates that she has been evaluated at [facility] for transplant. She was evaluated at the oncologist office she was profoundly weak and brought in the hospital for transfusion support. The patient's is wondering why she is not transfused to hemoglobin of 12 or 14 which she has read as normal. We discussed that blood pressures resource and every transfusion is actually fraught with multiple potential complications and as long as the patient is stable hemoglobin of 7 is medically acceptable. At this time the patient presents with evidence of illness and workup has been initiated. She's been treated with vancomycin and cefepime with concerns to febrile neutropenia although significant fever is not being seen since coming to Hospital but was having subjective fever before admission. There is some current data reveals that she likely has urinary tract infection and will continue current antibiotic therapy until further data is available. Fortunately she's feeling better with hydration and antibiotic therapy. I agree with evaluation, assessment and plan as dictated by nurse practitioner Mrs. Jackelyn Olmstead.
[2018-06-23 05:30] LABS: Anisocytosis Slight; HCT 23.1 % (34.0-46.0); HGB 7.4 gm/dL (11.4-16.0); Hypochromasia Marked; MCH 29.3 pg (25.0-35.0); MCHC 31.8 g/dL (31.0-37.0); MCV 92.1 fL (80.0-100.0); Mean Platelet Volume 13.4; Poikilocytosis Slight; RBC 2.51 m/uL (3.80-5.40); RDW 17.4 % (11.5-15.5)
[2018-06-23 05:33] LABS: Platelet Count 15 k/uL (150-450); WBC 1.2 k/uL (3.8-10.6)
[2018-06-23 05:44] LABS: Anion Gap 3 mmol/L; Blood Urea Nitrogen 32 mg/dL (7-17); Calcium 6.5 mg/dL (8.4-10.2); Carbon Dioxide 15 mmol/L (22-30); Chloride 117 mmol/L (98-107); Glucose 101 mg/dL (74-99); Potassium 3.5 mmol/L (3.5-5.1); Sodium 135 mmol/L (137-145)
[2018-06-23 05:50] LABS: Neutrophils % (M) 38 %
[2018-06-23 05:53] LABS: Band Neutrophils % 4 %; Eosinophils # (M) 0.02 k/uL (0-0.7); Lymphocytes # (M) 0.36 k/uL (1.0-4.8); Monocytes # (M) 0.31 k/uL (0-1.0); Nucleated Red Blood Cells 0 /100 WBC (0-0); Total Cells Counted 100
[2018-06-23 05:54] LABS: Anisocytosis (M) Present
[2018-06-23] MEDS ORDERED: Potassium Replacement Protocol 1 EACH MISC MISCELLANE PRN (06:11)
--- NOTE | 2018-06-23 06:31 | XR ---
EXAMINATION TYPE: XR chest 1V portable DATE OF EXAM: 06/23/2018 HISTORY: ICU management. REFERENCE: Previous study dated 06/22/2018. FINDINGS: Lung volumes are prominent. There is worsening left basilar airspace disease likely represe nting worsening pneumonia. There are small, bilateral effusions worse on the left than the right. The heart is not enlarged. IMPRESSION: 1. WORSENING LEFT BASILAR AIRSPACE DISEASE. 2. BILATERAL EFFUSIONS, GREATER ON THE LEFT THAN THE RIGHT. 3. I SUSPECT UNDERLYING COPD.
[2018-06-23] MEDS: CEFEPIME 2 GM in SODIUM CHLORIDE 0.9% 50 ML IVPB SCH ×2 (07:00→14:57)
[2018-06-23] MEDS: SODIUM CHLORIDE 0.9% 1,000 ML IV SCH ×3 (07:58→17:25)
[2018-06-23] MEDS: ACETAMINOPHEN TAB 325 MG TAB PO PRN (08:29)
[2018-06-23] MEDS: POTASSIUM CHLORIDE ER 20 MEQ TAB.ER PO SCH ×2 (08:30→09:49)
[2018-06-23] MEDS: PANTOPRAZOLE 40 MG/10 ML VIAL IVP SCH ×2 (08:30→22:25)
[2018-06-23] MEDS ORDERED: FUROSEMIDE 10 MG/ML 4 ML VIAL IV STA (09:36)
[2018-06-23] MEDS: VANCOMYCIN 1,250 MG in SODIUM CHLORIDE 0.9% 250 ML IVPB SCH (09:49)
[2018-06-23] MEDS: HYDROcodone/APAP 5-325MG 1 EACH TAB PO PRN (12:44)
--- NOTE | 2018-06-23 12:45 | P.PN ---
Subjective Progress Note Date: 06/23/18 Principal diagnosis: Acute neutropenic sepsis This 68-year-old white female patient with history of miyelodysplastic syndrome , who is being considered for bone marrow transplant, presented to her medical oncologist office yesterday for monitoring and transfusions. Patient was noted to be very weak, fatigued, hypotensive. She denied any fevers, patient has been unable to eat related to severe sharp epigastric discomfort after eating. No vomiting or diarrhea. She was sent to the hospital for further evaluation and treatment, on admission was in the 70s over 40s, she was given 2 L IV fluid bolus. Lactic acid was mildly elevated at 2.1, blood work revealed pancytopenia , WBC of 1.6, hemoglobin of 7.7, platelet count of 21, INR is 1.3, sodium is 131 , potassium is 4.7, chloride is 109, CO2 is 18 BUN of 30 and creatinine of 0.53 , bun is negative 3, urinalysis showed white blood cells, small amount of leuks , few bacteria and mucus. Blood cultures were drawn and pending at this time, patient was started on broad-spectrum antibiotic in the form of cefepime. She was given a dose of IV hydrocortisone in the emergency department, chest x-ray showed mild pulmonary congestion, and blunting of the costophrenic angles consistent for congestive heart failure small bilateral pleural effusions. He was given a dose of IV Lasix in the emergency department. Patient was then admitted to the oncology floor, and her blood pressures remain hypotensive 84/ 51, she appears to be pale and fatigued, denies acute distress unless she eats. Afebrile. Serum cortisol is been ordered. Reevaluated today on 06/22/2018, patient was transferred to the ICU yesterday after I saw her. Did not require any pressors overnight, her mean arterial pressure is in the 65 range, patient responded well to fluids, and her urine output has been excellent. Patient remains on broad-spectrum antibiotics, remains on cefepime and vancomycin. Hemoglobin is noted to be low today at 6.5 , hence we'll arrange for a unit of packed RBCs to be given before we transfer the patient back to the ICU plan oncology floor. In the meantime the cultures remain negative, and antibiotics as ordered will remain on board temporarily. The patient denies any cough wheezing or shortness of breath denies any chest pain no nausea no vomiting no abdominal pain, she just feels generally weak. WBC count remains low at 1.3 hemoglobin is 6.5 platelets are 18,000. Basic metabolic profile and renal profile are relatively normal she does have low bicarb, and the patient has what looks like a non-anion gap hyperchloremic metabolic acidosis. Patient was reevaluated today on 06/22/2018, patient remains in the ICU, feeling generally weak, and tired, continues to have pancytopenia, WBC count is 1.2 hemoglobin is 7.4 and her platelets are only 15,000. Patient denies any shortness of breath, although her chest x-ray is showing good size moderate sized pleural effusion on the left side. There is also a small right-sided pleural effusion. All her labs were reviewed, chest x-ray was reviewed reviewed with the patient, and I have recommended eventually thoracentesis if she doesn't improve with diuretics. Patient expects extremely against the idea of thoracentesis, hence I will try treatment with Lasix, and if she doesn't improve much may have to seriously consider platelets transfusion and thoracentesis. Looking at the notes from the oncologist, apparently the feeling is that the patient has extremely poor prognosis, and even entertaining the possibility of comfort measures only. Not felt to be a good candidate for bone marrow transplant. Objective - Vital Signs Vital signs: Vital Signs Temp 96.9 F L 06/23/18 08:00 Pulse 90 06/23/18 11:00 Resp 25 H 06/23/18 11:00 BP 118/58 06/23/18 08:00 Pulse Ox 99 06/23/18 08:00 Intake & Output 06/22/18 06/23/18 06/23/18 18:59 06:59 18:59 Intake Total 2410 1375 575 Output Total 1140 175 900 Balance 1270 1200 -325 Weight 65.3 kg Intake: IV 2100 1375 575 Cefepime 2 gm In Sodium 100 100 Chloride 0.9% 50 ml @ 100 mls/hr IVPB Q8H [facility]AL[facility] Rx#: [id number] Sodium Chloride 0.9% 1, 1250 250 100 000 ml @ 25 mls/hr IV . Q24H [facility]ALD Rx#:[id number] Vancomycin 1,250 mg In 750 1125 375 Sodium Chloride 0.9% 250 ml @ 125 mls/hr IVPB Q12H [facility]ALD Rx#:[id number] Blood Product 310 Rc Irr As1 Unit 310 [id number] Output: Urine 1140 175 900 Other: Voiding Method Indwelling Catheter Indwelling Catheter Bedside Commode Bedpan # Voids 1 1 # Bowel Movements 1 - Exam GENERAL EXAM: Alert, pleasant, pale 68-year-old white female, in no distress HEENT: PERRLA, EOMI, pale conjunctivae, no icterus, dry mucous membranes, no neck masses, no JVD, no stridor. CHEST: No chest wall deformity. Symmetrical expansion. LUNGS: Equal air entry no crackles, no rhonchi no wheezes. Slightly diminished breath sounds at the left base with dullness. CVS: Regular rate and rhythm, normal S1 and S2, no gallops, no murmurs, no rubs ABDOMEN: Soft, nontender. No hepatosplenomegaly, normal bowel sounds, no guarding or rigidity. EXTREMITIES: No clubbing, trace of bipedal edema, no cyanosis, 2+ pulses and upper and lower extremities. MUSCULOSKELETAL: Muscle strength and tone normal. SPINE: No scoliosis or deformity SKIN: No rashes CENTRAL NERVOUS SYSTEM: Alert and oriented -3. No focal deficits, tone is normal in all 4 extremities. PSYCHIATRIC: Alert and oriented -3. Appropriate affect. Intact judgment and insight. - Labs CBC & Chem 7: 06/23/18 04:55 06/23/18 04:55 Labs: Abnormal Lab Results - Last 24 Hours (Table) 06/22/18 06/23/18 06/23/18 Range/Units 08:08 04:55 04:55 WBC 1.2 L* (3.8-10.6) k/uL RBC 2.51 L (3.80-5.40) m/uL Hgb 7.4 L (11.4-16.0) gm/dL Hct 23.1 L (34.0-46.0) % RDW 17.4 H (11.5-15.5) % Plt Count 15 L* (150-450) k/uL Neutrophils # (Manual) 0.50 L (1.3-7.7) k/uL Lymphocytes # (Manual) 0.36 L (1.0-4.8) k/uL Sodium 135 L (137-145) mmol/L Chloride 117 H (98-107) mmol/L Carbon Dioxide 15 L (22-30) mmol/L BUN 32 H (7-17) mg/dL Glucose 101 H (74-99) mg/dL Calcium 6.5 L (8.4-10.2) mg/dL Crossmatch See Detail Microbiology - Last 24 Hours (Table) 06/20/18 21:18 Blood Culture - Preliminary Blood No Growth after 48 hours Assessment and Plan Assessment: #1. Acute Neutropenic sepsis #2. Myelodysplastic syndrome and myelofibrosis, being considered for bone marrow transplant #3. Pancytopenia, patient will be given a unit of packed RBCs today, and I will let oncology decide on her platelets whether she needs to have a platelet transfusion. #4. Hypotension, weakness, fatigue, anorexia, improved with fluids and empiric antibiotics. #5. Epigastric discomfort, resolved #6. Non-anion gap metabolic acidosis #7. Hyponatremia #8. Nicotine dependence in remission #9 non-anion gap hyperchloremic metabolic acidosis. #10 worsening left basilar atelectasis or airspace disease, and bilateral pleural effusions left more so than right, with dried diuretics, if no improvement may have to consider platelets transfusion and thoracentesis. Patient is extremely against the idea of thoracentesis at this point. Recommendation: Continue antibiotics, diuretics, follow-up chest x-ray in a.m., pancytopenia is being addressed by hematology on the case, patient may require platelets transfusion if thoracentesis is to be done. Will follow closely patient could be transferred out of the ICU to a regular medical floor today if possible. Prognosis is extremely poor in the long run. Apparently the patient and her are both aware of the poor prognostic picture. And they may be inclined even to consider comfort care measures. Time with Patient: Less than 30
--- NOTE | 2018-06-23 15:37 | P.PN ---
Subjective Progress Note Date: 06/23/18 This is a 68-year-old female previously diagnosed with primary myelofibrosis and myelodysplastic dysplastic syndrome in 2016. The patient is scheduled for bone marrow transplant in September 2018. Patient is complaining of significant weakness, fatigue, poor appetite. She denies having any fever or chills. No nausea or vomiting. No diarrhea. She was at oncology office and attempted fluid resuscitation was done the patient was then sent into the hospital for further evaluation and antibiotics. Currently white count is 1.3, hemoglobin 6.5 and she was scheduled for 1 unit of packed RBCs today. Platelet count is 18. Creatinine 0.57, lactic acid was 1.4. Troponins were negative on 3 draws. Albumin 1.4, amylase and lipase were normal and cortisol level was normal. Urinalysis was nitrate positive, leukoesterase small, WBC 28 and bacteria few. Patient does complain of dysuria prior to admission. She currently has a Ardon catheter that is quite uncomfortable for her. Chest x- ray done today shows basilar atelectasis versus pneumonia, effusion. Echocardiogram reveals EF of 55-60%, mild mitral regurgitation mild tricuspid regurgitation, no pulmonary hypertension. No mention of vegetation. Blood cultures are no growth after 24 hours. Patient states that she is not feeling any better since arrival. 06/23/2018 patient is feeling somewhat better today. Continues to have some low -grade fever no chills or rigors. Has profound fatigue related to her MDS. She is denying stomach and nausea or emesis appetites poor is having difficulty with her protein diet here. Objective - Vital Signs Vital signs: Vital Signs Temp 96.9 F L 06/23/18 08:00 Pulse 95 06/23/18 15:00 Resp 25 H 06/23/18 15:00 BP 118/58 06/23/18 08:00 Pulse Ox 99 06/23/18 08:00 Intake & Output 06/22/18 06/23/18 06/23/18 18:59 06:59 18:59 Intake Total 2410 1375 650 Output Total 1140 175 900 Balance 1270 1200 -250 Weight 65.3 kg Intake: IV 2100 1375 650 Cefepime 2 gm In Sodium 100 100 Chloride 0.9% 50 ml @ 100 mls/hr IVPB Q8H [facility] Rx#: [id number] Sodium Chloride 0.9% 1, 1250 250 175 000 ml @ 25 mls/hr IV . Q24H [facility] Rx#:[id number] Vancomycin 1,250 mg In 750 1125 375 Sodium Chloride 0.9% 250 ml @ 125 mls/hr IVPB Q12H [facility] Rx#:[id number] Blood Product 310 Rc Irr As1 Unit 310 [id number] Output: Urine 1140 175 900 Other: Voiding Method Indwelling Catheter Indwelling Catheter Bedside Commode Bedpan # Voids 1 0 # Bowel Movements 1 - Exam Gen: This is a thin 68-year-old female she is an ICU bed and appears to be comfortable but displeased that she is so ill HEENT: Head is atraumatic, normocephalic. Pupils equal, round. Sclerae is anicteric. Conjunctiva pale. Mucous members of the mouth are moist. There is a lesion on the tip of the tongue the right side. NECK: Supple. No JVD. No lymphadenopathy. No thyromegaly. LUNGS: Clear to auscultation. No wheezes or rhonchi. No intercostal retractions. HEART: Regular rate and rhythm. No murmur. ABDOMEN: Soft. Bowel sounds are present. No masses. No tenderness. EXTREMITIES: No pedal edema. No calf tenderness. NEUROLOGICAL: Patient is awake, alert and oriented x3. Appropriate affect. - Labs CBC & Chem 7: 06/23/18 04:55 06/23/18 04:55 Labs: Abnormal Lab Results - Last 24 Hours (Table) 06/23/18 06/23/18 Range/Units 04:55 04:55 WBC 1.2 L* (3.8-10.6) k/uL RBC 2.51 L (3.80-5.40) m/uL Hgb 7.4 L (11.4-16.0) gm/dL Hct 23.1 L (34.0-46.0) % RDW 17.4 H (11.5-15.5) % Plt Count 15 L* (150-450) k/uL Neutrophils # (Manual) 0.50 L (1.3-7.7) k/uL Lymphocytes # (Manual) 0.36 L (1.0-4.8) k/uL Sodium 135 L (137-145) mmol/L Chloride 117 H (98-107) mmol/L Carbon Dioxide 15 L (22-30) mmol/L BUN 32 H (7-17) mg/dL Glucose 101 H (74-99) mg/dL Calcium 6.5 L (8.4-10.2) mg/dL Microbiology - Last 24 Hours (Table) 06/20/18 21:18 Blood Culture - Preliminary Blood No Growth after 48 hours Laboratory Results WBC 1.2 k/uL (3.8-10.6) L* 06/23/18 04:55 RBC 2.51 m/uL (3.80-5.40) L 06/23/18 04:55 Hgb 7.4 gm/dL (11.4-16.0) L 06/23/18 04:55 Hct 23.1 % (34.0-46.0) L 06/23/18 04:55 MCV 92.1 fL (80.0-100.0) 06/23/18 04:55 MCH 29.3 pg (25.0-35.0) 06/23/18 04:55 MCHC 31.8 g/dL (31.0-37.0) 06/23/18 04:55 RDW 17.4 % (11.5-15.5) H 06/23/18 04:55 Plt Count 15 k/uL (150-450) L* 06/23/18 04:55 Neutrophils % (Manual) 38 % 06/23/18 04:55 Band Neutrophils % 4 % 06/23/18 04:55 Lymphocytes % (Manual) 30 % 06/23/18 04:55 Monocytes % (Manual) 26 % 06/23/18 04:55 Eosinophils % (Manual) 2 % 06/23/18 04:55 Neutrophils # (Manual) 0.50 k/uL (1.3-7.7) L 06/23/18 04:55 Lymphocytes # (Manual) 0.36 k/uL (1.0-4.8) L 06/23/18 04:55 Monocytes # (Manual) 0.31 k/uL (0-1.0) 06/23/18 04:55 Eosinophils # (Manual) 0.02 k/uL (0-0.7) 06/23/18 04:55 Nucleated RBCs 0 /100 WBC (0-0) 06/23/18 04:55 Manual Slide Review Performed 06/23/18 04:55 Large Platelets Present 06/22/18 05:47 Polychromasia Present 06/22/18 05:47 Hypochromasia Marked 06/23/18 04:55 Poikilocytosis Slight 06/23/18 04:55 Poikilocytosis (manual Present 06/22/18 05:47 Basophilic Stippling Present 06/20/18 18:02 Anisocytosis Slight 06/23/18 04:55 Anisocytosis (manual) Present 06/23/18 04:55 Macrocytosis Slight 06/22/18 05:47 PT 13.5 sec (9.0-12.0) H 06/20/18 18:02 INR 1.3 (<1.2) H 06/20/18 18:02 APTT 27.3 sec (22.0-30.0) 06/20/18 18:02 Sodium 135 mmol/L (137-145) L 06/23/18 04:55 Potassium 3.5 mmol/L (3.5-5.1) 06/23/18 04:55 Chloride 117 mmol/L (98-107) H 06/23/18 04:55 Carbon Dioxide 15 mmol/L (22-30) L 06/23/18 04:55 Anion Gap 3 mmol/L 06/23/18 04:55 BUN 32 mg/dL (7-17) H 06/23/18 04:55 Creatinine 0.68 mg/dL (0.52-1.04) 06/23/18 04:55 Est GFR (CKD-EPI)AfAm >90 (>60 ml/min/1.73 sqM) 06/23/18 04:55 Est GFR (CKD-EPI)NonAf >90 (>60 ml/min/1.73 sqM) 06/23/18 04:55 Glucose 101 mg/dL (74-99) H 06/23/18 04:55 POC Glucose (mg/dL) 117 mg/dL (75-99) H 06/21/18 18:14 POC Glu [employer] Masoud Sethi 06/21/18 18:14 Lactic Ac Sepsis Rflx Y 06/20/18 19:08 Plasma Lactic Acid Bobby 1.4 mmol/L (0.7-2.0) 12/12/18 22:35 Calcium 6.5 mg/dL (8.4-10.2) L 06/23/18 04:55 Magnesium 2.1 mg/dL (1.6-2.3) 06/22/18 05:47 Total Bilirubin 1.2 mg/dL (0.2-1.3) 06/20/18 18:02 AST 15 U/L (14-36) 06/20/18 18:02 ALT 37 U/L (9-52) 06/20/18 18:02 Alkaline Phosphatase 27 U/L (38-126) L 06/20/18 18:02 Total Creatine Kinase <20 U/L (30-135) L 06/21/18 07:18 CK-MB (CK-2) 0.8 ng/mL (0.0-2.4) 06/21/18 07:18 CK-MB (CK-2) Rel Index 06/21/18 07:18 Troponin I <0.012 ng/mL (0.000-0.034) 06/22/18 08:17 Total Protein 3.1 g/dL (6.3-8.2) L 06/20/18 18:02 Albumin 1.4 g/dL (3.5-5.0) L 06/20/18 18:02 Amylase <30 U/L (30-110) L 06/21/18 19:57 Lipase <10 U/L (23-300) L 06/21/18 19:57 Cortisol 21 ug/dL 06/22/18 05:47 Urine Color Yellow 06/20/18 14:17 Urine Appearance Clear (Clear) 06/20/18 14:17 Urine pH 6.0 (5.0-8.0) 06/20/18 14:17 Ur Specific Gurley 1.018 (1.001-1.035) 06/20/18 14:17 Urine Protein 1+ (Negative) H 06/20/18 14:17 Urine Glucose (UA) Negative (Negative) 06/20/18 14:17 Urine Ketones Trace (Negative) H 06/20/18 14:17 Urine Blood Negative (Negative) 06/20/18 14:17 Urine Nitrite Positive (Negative) H 06/20/18 14:17 Urine Bilirubin Negative (Negative) 06/20/18 14:17 Urine Urobilinogen <2.0 mg/dL (<2.0) 06/20/18 14:17 Ur Leukocyte Esterase Small (Negative) H 06/20/18 14:17 Urine WBC 28 /hpf (0-5) H 06/20/18 14:17 Ur Squamous Epith Cells 2 /hpf (0-4) 06/20/18 14:17 Urine Bacteria Few /hpf (None) H 06/20/18 14:17 Urine Mucus Few /hpf (None) H 06/20/18 14:17 Blood Type A Positive 06/22/18 08:08 Blood Type Recheck No 06/22/18 08:08 Antibody Screen NEGATIVE 06/22/18 08:08 Crossmatch See Detail 06/22/18 08:08 Spec Expiration Date 06/25/2018 - 230706/22/18 08:08 Microbiology 06/20/18 21:18 Blood Blood Culture - Preliminary No Growth after 48 hours Out patient urine culture reveals evidence of Klebsiella pneumoniae susceptible Assessment and Plan (1) Myelodysplastic syndrome Current Visit: Yes Status: Acute Priority: High Code(s): D46.9 - MYELODYSPLASTIC SYNDROME, UNSPECIFIED SNOMED Code(s): 339233976 (2) Urinary tract infection Narrative/Plan: Pleasant woman that has long-standing history of hematological abnormalities in his developed myelodysplastic syndrome following a known diagnosis of primary myelofibrosis. She relates that she has been evaluated at [facility] for transplant. She was evaluated at the oncologist office she was profoundly weak and brought in the hospital for transfusion support. The patient's is wondering why she is not transfused to hemoglobin of 12 or 14 which she has read as normal. We discussed that blood pressures resource and every transfusion is actually fraught with multiple potential complications and as long as the patient is stable hemoglobin of 7 is medically acceptable. At this time the patient presents with evidence of illness and workup has been initiated. She's been treated with vancomycin and cefepime with concerns to febrile neutropenia although significant fever is not being seen since coming to Hospital but was having subjective fever before admission. There is some current data reveals that she likely has urinary tract infection and will continue current antibiotic therapy until further data is available. Fortunately she's feeling better with hydration and antibiotic therapy. 06/23/2018 patient not feeling well. However is not having high-grade fevers or chills. Appetite is poor, little desire to eat. Urine culture with Klebsiella that is carrion susceptible. We'll be able to transition antibiotic therapy to Rocephin and then as she improves plans for her home antibiotic therapy can then be made depending on her overall course shall be taken. Current Visit: Yes Status: Acute Code(s): N39.0 - URINARY TRACT INFECTION, SITE NOT SPECIFIED SNOMED Code(s): 16311440 (3) Klebsiella infection Current Visit: Yes Status: Acute Code(s): A49.8 - OTHER BACTERIAL INFECTIONS OF UNSPECIFIED SITE SNOMED Code(s): 518118029
[2018-06-23] MEDS: cefTRIAXone 2,000 MG in SODIUM CHLORIDE 0.9% 100 ML IVPB SCH (17:07)
[2018-06-23] MEDS ORDERED: VANCOMYCIN TROUGH DUE 1 EACH MISC MISCELLANE ONE (18:00)
[2018-06-23] MEDS ORDERED: ONDANSETRON 4 MG/2 ML VIAL ONE (20:03)
--- NOTE | 2018-06-23 20:20 | PN ---
PROGRESS NOTE DATE OF SERVICE: 06/23/2018. This 68-year-old woman who was admitted with acute hypotension, sepsis, also had pulmonary edema and bilateral pneumonia. The patient also had pancytopenia secondary to myelodysplastic syndrome as well as myelofibrosis. The patient is opting for chemotherapy at this time. Dr. Salas is also in touch with [facility] regarding further evaluation and treatment. PAST MEDICAL HISTORY: Reviewed. REVIEW OF SYSTEMS: CARDIOVASCULAR: No angina or palpitations. RESPIRATIONS: As mentioned earlier. GI : As mentioned earlier. no dysuria. CENTRAL NERVOUS SYSTEM: No numbness. Generalized weakness. CURRENT MEDICATIONS ARE: Reviewed and include: 1. Tylenol 650 q8h p.r.n. 2. Gladwin 5 mg p.r.n. 3. Cefepime 2 g IV q.8h. 4. Potassium protocol. 5. Vancomycin IV. 6. Protonix 40 mg daily. 7. Vancomycin 1.25 mg b.i.d. PHYSICAL EXAM: Patient is alert, oriented x3. Pulse 88, blood pressure is 180/58, respirations 24, temperature 97.9, pulse ox 99% on 3 L. HEENT is conjunctivae normal. Oral mucosa moist. Neck is no jugular venous distention. No carotid bruit. No lymph node enlargement. Conjunctivae pale. Oral mucosa moist. Cardiovascular: S1, S2 muffled. No S3, no S4. RESPIRATORY: Breath sounds diminished in the bases. A few scattered rhonchi and crackles. ABDOMEN: Soft. Mild diffuse tenderness present. Legs are no edema. No swelling. NERVOUS SYSTEM: No focal deficits. LAB STUDIES: WBC 1.9, hemoglobin 7.4, platelets are 15, sodium 135, CO2 is 15. ASSESSMENT: 1. Acute hypotension with possible severe sepsis present on admission. 2. Possible bilateral pneumonia lt more than right and pulmonary edema present on admission. 3. Pancytopenia secondary to myelodysplastic syndrome as well as myelofibrosis. klebsiella uti 4. Severe leukopenia. 5. Severe anemia, status post transfusion. 6. Hyponatremia. 7. Elevated plasma lactic acidosis present on admission. 8. Hypoalbuminemia. 9. History of cholecystectomy. 10.History of degenerative joint disease. RECOMMENDATIONS AND DISCUSSION: Recommend to continue current medications, management and symptomatic treatment. Otherwise, at this time, I recommend continue the broad-spectrum IV antibiotics. Repeat labs. Dr. Salas's notes appreciated. Had a detailed discussion with the family and currently continue to monitor. Patient also complains of some lower abdominal pain. Symptomatic treatment will be provided. Gladwin has been added to the current regimen. Discussed with staff. Prognosis extremely guarded. Further recommendations to follow. Patient apparently is not a bone marrow transplantation as per discussion with Dr. Salas at this time. Further recommendations to follow. MMODL / IJN: [id number] / MTDD
[2018-06-24] MEDS: HYDROcodone/APAP 5-325MG 1 EACH TAB PO PRN ×4 (02:17→23:57)
[2018-06-24 08:09] LABS: Calcium 7.4 mg/dL (8.4-10.2); Potassium 3.7 mmol/L (3.5-5.1)
[2018-06-24 08:55] LABS: Anisocytosis Slight; HCT 27.1 % (34.0-46.0); HGB 8.4 gm/dL (11.4-16.0); Hypochromasia Marked; MCH 28.3 pg (25.0-35.0); MCV 91.3 fL (80.0-100.0); Mean Platelet Volume 15.7; Poikilocytosis Slight; RBC 2.97 m/uL (3.80-5.40); RDW 17.5 % (11.5-15.5); WBC 1.6 k/uL (3.8-10.6)
[2018-06-24 08:58] LABS: Platelet Count 16 k/uL (150-450)
[2018-06-24] MEDS: PANTOPRAZOLE 40 MG/10 ML VIAL IVP SCH ×2 (08:59→20:14)
--- NOTE | 2018-06-24 09:30 | XR ---
EXAMINATION TYPE: XR chest 1V portable DATE OF EXAM: 06/24/2018 HISTORY: follow-up. REFERENCE: Previous study dated 06/23/2018. FINDINGS: There is slight improved aeration at the left lung base. The heart is not enlarged. I canno t exclude a left effusion. There is underlying COPD. IMPRESSION: SLIGHT IMPROVED AERATION, LEFT LUNG BASE.
[2018-06-24] MEDS: cefTRIAXone 2,000 MG in SODIUM CHLORIDE 0.9% 100 ML IVPB SCH (10:59)
[2018-06-24 13:28] LABS: Band Neutrophils % 2 %; Eosinophils # (M) 0.02 k/uL (0-0.7); Lymphocytes # (M) 0.19 k/uL (1.0-4.8); Monocytes # (M) 0.43 k/uL (0-1.0); Neutrophils % (M) 58 %; Nucleated Red Blood Cells 1 /100 WBC (0-0); Total Cells Counted 100
[2018-06-24 13:29] LABS: Large Platelets Present; RBC Fragments Present
--- NOTE | 2018-06-24 14:42 | P.PN ---
Subjective Progress Note Date: 06/24/18 Principal diagnosis: Acute neutropenic sepsis This 68-year-old white female patient with history of miyelodysplastic syndrome , who is being considered for bone marrow transplant, presented to her medical oncologist office yesterday for monitoring and transfusions. Patient was noted to be very weak, fatigued, hypotensive. She denied any fevers, patient has been unable to eat related to severe sharp epigastric discomfort after eating. No vomiting or diarrhea. She was sent to the hospital for further evaluation and treatment, on admission was in the 70s over 40s, she was given 2 L IV fluid bolus. Lactic acid was mildly elevated at 2.1, blood work revealed pancytopenia , WBC of 1.6, hemoglobin of 7.7, platelet count of 21, INR is 1.3, sodium is 131 , potassium is 4.7, chloride is 109, CO2 is 18 BUN of 30 and creatinine of 0.53 , bun is negative 3, urinalysis showed white blood cells, small amount of leuks , few bacteria and mucus. Blood cultures were drawn and pending at this time, patient was started on broad-spectrum antibiotic in the form of cefepime. She was given a dose of IV hydrocortisone in the emergency department, chest x-ray showed mild pulmonary congestion, and blunting of the costophrenic angles consistent for congestive heart failure small bilateral pleural effusions. He was given a dose of IV Lasix in the emergency department. Patient was then admitted to the oncology floor, and her blood pressures remain hypotensive 84/ 51, she appears to be pale and fatigued, denies acute distress unless she eats. Afebrile. Serum cortisol is been ordered. Reevaluated today on 06/22/2018, patient was transferred to the ICU yesterday after I saw her. Did not require any pressors overnight, her mean arterial pressure is in the 65 range, patient responded well to fluids, and her urine output has been excellent. Patient remains on broad-spectrum antibiotics, remains on cefepime and vancomycin. Hemoglobin is noted to be low today at 6.5 , hence we'll arrange for a unit of packed RBCs to be given before we transfer the patient back to the ICU plan oncology floor. In the meantime the cultures remain negative, and antibiotics as ordered will remain on board temporarily. The patient denies any cough wheezing or shortness of breath denies any chest pain no nausea no vomiting no abdominal pain, she just feels generally weak. WBC count remains low at 1.3 hemoglobin is 6.5 platelets are 18,000. Basic metabolic profile and renal profile are relatively normal she does have low bicarb, and the patient has what looks like a non-anion gap hyperchloremic metabolic acidosis. Patient was reevaluated today on 06/23/2018, patient remains in the ICU, feeling generally weak, and tired, continues to have pancytopenia, WBC count is 1.2 hemoglobin is 7.4 and her platelets are only 15,000. Patient denies any shortness of breath, although her chest x-ray is showing good size moderate sized pleural effusion on the left side. There is also a small right-sided pleural effusion. All her labs were reviewed, chest x-ray was reviewed reviewed with the patient, and I have recommended eventually thoracentesis if she doesn't improve with diuretics. Patient expects extremely against the idea of thoracentesis, hence I will try treatment with Lasix, and if she doesn't improve much may have to seriously consider platelets transfusion and thoracentesis. Looking at the notes from the oncologist, apparently the feeling is that the patient has extremely poor prognosis, and even entertaining the possibility of comfort measures only. Not felt to be a good candidate for bone marrow transplant. Seen on 06/24/2018, patient feels generally weak, tired, she is on the oncology floor, transferred out of the ICU yesterday. Continues to have pancytopenia, WBC count is 1.6 hemoglobin is 8.4 platelets are 16,000. Basic metabolic profile is basically the same showing hyperchloremic non-anion gap metabolic acidosis. Chest x-ray continues to show left pleural effusion and atelectasis, definitely improved compared to the chest x-ray I reviewed yesterday. There is definitely better aeration of the left lung base. Patient did receive 1 dose of Lasix yesterday. And I plan to continue Lasix on a daily basis patient will not likely require thoracentesis. Patient was seen by Dr. Trejo yesterday, and he switched antibiotics to Rocephin. Patient did have Klebsiella in her urine culture. Blood culture is negative in the last 72 hours Objective - Vital Signs Vital signs: Vital Signs Temp 96.7 F L 06/24/18 04:35 Pulse 91 06/24/18 12:47 Resp 16 06/24/18 12:47 BP 97/63 06/24/18 12:47 Pulse Ox 92 L 06/24/18 12:47 Intake & Output 06/23/18 06/24/18 06/24/18 18:59 06:59 18:59 Intake Total 725 345 Output Total 1150 0 Balance -425 345 Intake: IV 725 225 Cefepime 2 gm In Sodium 100 Chloride 0.9% 50 ml @ 100 mls/hr IVPB Q8H [facility] Rx#: [id number] Sodium Chloride 0.9% 1, 250 225 000 ml @ 25 mls/hr IV . Q24H [facility] Rx#:[id number] Vancomycin 1,250 mg In 375 Sodium Chloride 0.9% 250 ml @ 125 mls/hr IVPB Q12H [facility] Rx#:[id number] Oral 120 Output: Urine 1150 0 Other: Voiding Method Bedside Commode Bedside Commode Bedside Commode Bedpan Bedpan # Voids 0 # Bowel Movements 1 - Exam GENERAL EXAM: Alert, pleasant, pale 68-year-old white female, in no distress HEENT: PERRLA, EOMI, pale conjunctivae, no icterus, dry mucous membranes, no neck masses, no JVD, no stridor. CHEST: No chest wall deformity. Symmetrical expansion. LUNGS: Equal air entry no crackles, no rhonchi no wheezes. Continues to have diminished breath sounds at the left base. CVS: Regular rate and rhythm, normal S1 and S2, no gallops, no murmurs, no rubs ABDOMEN: Soft, nontender. No hepatosplenomegaly, normal bowel sounds, no guarding or rigidity. EXTREMITIES: No clubbing, trace of bipedal edema, no cyanosis, 2+ pulses and upper and lower extremities. MUSCULOSKELETAL: Muscle strength and tone normal. SPINE: No scoliosis or deformity CENTRAL NERVOUS SYSTEM: Alert and oriented -3. No focal deficits, tone is normal in all 4 extremities. PSYCHIATRIC: Alert and oriented -3. Appropriate affect. Intact judgment and insight. - Labs CBC & Chem 7: 06/24/18 07:05 06/24/18 07:05 Labs: Abnormal Lab Results - Last 24 Hours (Table) 06/24/18 06/24/18 Range/Units 07:05 07:05 WBC 1.6 L (3.8-10.6) k/uL RBC 2.97 L (3.80-5.40) m/uL Hgb 8.4 L (11.4-16.0) gm/dL Hct 27.1 L (34.0-46.0) % RDW 17.5 H (11.5-15.5) % Plt Count 16 L* (150-450) k/uL Neutrophils # (Manual) 0.90 L (1.3-7.7) k/uL Lymphocytes # (Manual) 0.19 L (1.0-4.8) k/uL Nucleated RBCs 1 H (0-0) /100 WBC Chloride 119 H (98-107) mmol/L Carbon Dioxide 15 L (22-30) mmol/L BUN 37 H (7-17) mg/dL Glucose 100 H (74-99) mg/dL Calcium 7.4 L (8.4-10.2) mg/dL Microbiology - Last 24 Hours (Table) 06/20/18 21:18 Blood Culture - Preliminary Blood No Growth after 72 hours Assessment and Plan Assessment: #1. Acute Neutropenic sepsis #2. Myelodysplastic syndrome and myelofibrosis, being considered for bone marrow transplant #3. Pancytopenia, patient will be given a unit of packed RBCs today, and I will let oncology decide on her platelets whether she needs to have a platelet transfusion. #4. Hypotension, weakness, fatigue, anorexia, improved with fluids and empiric antibiotics. #5. Epigastric discomfort, resolved #6. Non-anion gap metabolic acidosis #7. Hyponatremia #8. Nicotine dependence in remission #9 non-anion gap hyperchloremic metabolic acidosis. #10 improving left-sided pleural effusion and atelectasis, hence we'll continue diuretics, and repeat chest x-ray in a.m. Recommendation: Continue antibiotics, as per Dr. Trejo. Continue diuretics, follow-up chest x-ray in a.m., pancytopenia is being addressed by hematology on the case, patient may require platelets transfusion if thoracentesis is to be done. Discussed her condition today with her and her , patient seems to be quite depressed about her overall condition, but overall she is coping well. We'll continue to follow. Time with Patient: Less than 30
[2018-06-24] MEDS: FUROSEMIDE 20 MG TAB PO SCH (16:51)
[2018-06-24] MEDS: SODIUM CHLORIDE 0.9% 1,000 ML IV SCH (18:07)
--- NOTE | 2018-06-24 21:48 | PN ---
PROGRESS NOTE DATE OF SERVICE: 06/24/2018 This 68-year-old woman was admitted with hypertension, sepsis, also pulmonary edema and bilateral pneumonia. The patient also has pancytopenia secondary to myelodysplastic syndrome as well as myelofibrosis. Dr. Salas is planning possible chemotherapy per patient's choice at this time. No concomitant chemotherapy. No chest pain. No palpitations. No fever. EXAM: Alert and oriented x3. The pulse is 91, blood pressure 97/60, respirations 16, temperature 97.8, pulse ox 92% on room air. HEENT: Conjunctivae pale. Oral mucosa moist. NECK: No jugular venous distention. No lymph node enlargement. CARDIOVASCULAR: S1, S2. RESPIRATORY: Diminished breath sounds at the bases. A few rhonchi, no crackles. ABDOMEN: Soft, nontender. LEGS: No swelling. NERVOUS SYSTEM: No focal deficits. LABS: WBC 7.2, hemoglobin is 8.4, platelets 16. Sodium 130, potassium 3.7, and CO2 is 15. Calcium is 7.4. ASSESSMENT: 1. Acute hypotension with possible severe sepsis present on admission. 2. Possible bilateral pneumonia, left more than the right with pulmonary edema present on admission. 3. Pancytopenia secondary to myelodysplastic syndrome as well as myelofibrosis. 4. Klebsiella UTI. 5. Severe leukopenia. 6. Severe anemia, status post transfusion. 7. Hyponatremia. 8. Elevated plasma lactic acidosis present on admission. 9. Hypoalbuminemia. 10.History of cholecystectomy. 11.History of DJD. RECOMMENDATIONS: Recommend to continue current medications, continue antibiotics. Repeat labs. Closely follow with Dr. Salas and Hematology/Oncology. Guarded prognosis because of multiple complex medical issues. Further recommendations to follow. MMODL / IJN: [id number] /
--- NOTE | 2018-06-25 08:35 | XR ---
EXAMINATION TYPE: XR chest 1V portable DATE OF EXAM: 06/25/2018 CLINICAL HISTORY: Difficulty breathing and pleural effusions progress study. TECHNIQUE: Single AP portable upright view of the chest is obtained. COMPARISON: Chest x-ray from one day earlier and older studies. FINDINGS: Right axillary size is stable and upper limits of normal with atherosclerotic thoracic aor ta. There is increasing bibasilar opacity consistent with moderate left and small to moderate right p leural effusion is increased in prominence from prior study. Worsening central vascular congestion is seen. There is associated bibasilar atelectasis and/or infiltrate. Osseous structures remain somewha t demineralized. Underlying S-shaped scoliosis is redemonstrated. IMPRESSION: There is moderate central vascular congestion and small to moderate-sized left greater th an right pleural effusions, both findings more prominent versus prior. There is associated bibasilar atelectasis and/or infiltrate seen.
[2018-06-25] MEDS: cefTRIAXone 2,000 MG in SODIUM CHLORIDE 0.9% 100 ML IVPB SCH (09:24)
[2018-06-25] MEDS: PANTOPRAZOLE 40 MG/10 ML VIAL IVP SCH ×2 (09:24→21:49)
[2018-06-25] MEDS: FUROSEMIDE 20 MG TAB PO SCH (09:24)
[2018-06-25 09:51] LABS: Anisocytosis Slight; HCT 29.3 % (34.0-46.0); HGB 9.1 gm/dL (11.4-16.0); Hypochromasia Marked; MCH 29.4 pg (25.0-35.0); MCHC 31.2 g/dL (31.0-37.0); MCV 94.2 fL (80.0-100.0); Mean Platelet Volume 20.6; Poikilocytosis Slight; RBC 3.11 m/uL (3.80-5.40); RDW 17.6 % (11.5-15.5)
[2018-06-25 10:00] LABS: Platelet Count 11 k/uL (150-450)
[2018-06-25 10:15] LABS: Calcium 7.5 mg/dL (8.4-10.2); Potassium 3.7 mmol/L (3.5-5.1)
[2018-06-25 10:49] LABS: Band Neutrophils % 1 %; Metamyelocytes # (M) 0.02 k/uL (0); Metamyelocytes % 1 %; Myelocytes # (M) 0.04 k/uL (0); Myelocytes % 2 %; Neutrophils % (M) 48 %; Nucleated Red Blood Cells 4 /100 WBC (0-0); Total Cells Counted 100
[2018-06-25 10:50] LABS: Large Platelets Present; Lymphocytes # (M) 0.49 k/uL (1.0-4.8); Monocytes # (M) 0.38 k/uL (0-1.0); Toxic Vacuolation Present; WBC 1.8 k/uL (3.8-10.6)
[2018-06-25] MEDS: VANCOMYCIN 1,000 MG in SODIUM CHLORIDE 0.9% 250 ML IVPB SCH ×2 (11:30→21:49)
[2018-06-25] MEDS: PIPERACILLIN-TAZOBACTAM 3.375 GM in SODIUM CHLORIDE 0.9% 100 ML IVPB SCH ×2 (11:30→16:35)
[2018-06-25 12:21] LABS: Glucose,Whole Blood 143 mg/dL (75-99)
[2018-06-25 13:28] VITALS: BMI 24.6
[2018-06-25] MEDS ORDERED: NOREPINEPHRINE 4 MG in SODIUM CHLORIDE 0.9% 250 ML IV SCH (13:30)
[2018-06-25] MEDS ORDERED: FILGRASTIM-SNDZ 480 MCG/0.8 ML SYRINGE SQ SCH (13:30)
[2018-06-25] MEDS ORDERED: HYDROmorphone 1 MG/ML 1 ML SYRINGE IVP PRN (14:23)
[2018-06-25] MEDS: HYDROmorphone 0.5 MG/0.5 ML SYRINGE IVP PRN ×3 (14:49→20:24)
--- NOTE | 2018-06-25 14:56 | P.PN ---
Subjective Progress Note Date: 06/25/18 Principal diagnosis: Acute neutropenic sepsis, septic shock This 68-year-old white female patient with history of miyelodysplastic syndrome , who is being considered for bone marrow transplant, presented to her medical oncologist office yesterday for monitoring and transfusions. Patient was noted to be very weak, fatigued, hypotensive. She denied any fevers, patient has been unable to eat related to severe sharp epigastric discomfort after eating. No vomiting or diarrhea. She was sent to the hospital for further evaluation and treatment, on admission was in the 70s over 40s, she was given 2 L IV fluid bolus. Lactic acid was mildly elevated at 2.1, blood work revealed pancytopenia , WBC of 1.6, hemoglobin of 7.7, platelet count of 21, INR is 1.3, sodium is 131 , potassium is 4.7, chloride is 109, CO2 is 18 BUN of 30 and creatinine of 0.53 , bun is negative 3, urinalysis showed white blood cells, small amount of leuks , few bacteria and mucus. Blood cultures were drawn and pending at this time, patient was started on broad-spectrum antibiotic in the form of cefepime. She was given a dose of IV hydrocortisone in the emergency department, chest x-ray showed mild pulmonary congestion, and blunting of the costophrenic angles consistent for congestive heart failure small bilateral pleural effusions. He was given a dose of IV Lasix in the emergency department. Patient was then admitted to the oncology floor, and her blood pressures remain hypotensive 84/ 51, she appears to be pale and fatigued, denies acute distress unless she eats. Afebrile. Serum cortisol is been ordered. Reevaluated today on 06/22/2018, patient was transferred to the ICU yesterday after I saw her. Did not require any pressors overnight, her mean arterial pressure is in the 65 range, patient responded well to fluids, and her urine output has been excellent. Patient remains on broad-spectrum antibiotics, remains on cefepime and vancomycin. Hemoglobin is noted to be low today at 6.5 , hence we'll arrange for a unit of packed RBCs to be given before we transfer the patient back to the ICU plan oncology floor. In the meantime the cultures remain negative, and antibiotics as ordered will remain on board temporarily. The patient denies any cough wheezing or shortness of breath denies any chest pain no nausea no vomiting no abdominal pain, she just feels generally weak. WBC count remains low at 1.3 hemoglobin is 6.5 platelets are 18,000. Basic metabolic profile and renal profile are relatively normal she does have low bicarb, and the patient has what looks like a non-anion gap hyperchloremic metabolic acidosis. Patient was reevaluated today on 06/23/2018, patient remains in the ICU, feeling generally weak, and tired, continues to have pancytopenia, WBC count is 1.2 hemoglobin is 7.4 and her platelets are only 15,000. Patient denies any shortness of breath, although her chest x-ray is showing good size moderate sized pleural effusion on the left side. There is also a small right-sided pleural effusion. All her labs were reviewed, chest x-ray was reviewed reviewed with the patient, and I have recommended eventually thoracentesis if she doesn't improve with diuretics. Patient expects extremely against the idea of thoracentesis, hence I will try treatment with Lasix, and if she doesn't improve much may have to seriously consider platelets transfusion and thoracentesis. Looking at the notes from the oncologist, apparently the feeling is that the patient has extremely poor prognosis, and even entertaining the possibility of comfort measures only. Not felt to be a good candidate for bone marrow transplant. Seen on 06/24/2018, patient feels generally weak, tired, she is on the oncology floor, transferred out of the ICU yesterday. Continues to have pancytopenia, WBC count is 1.6 hemoglobin is 8.4 platelets are 16,000. Basic metabolic profile is basically the same showing hyperchloremic non-anion gap metabolic acidosis. Chest x-ray continues to show left pleural effusion and atelectasis, definitely improved compared to the chest x-ray I reviewed yesterday. There is definitely better aeration of the left lung base. Patient did receive 1 dose of Lasix yesterday. And I plan to continue Lasix on a daily basis patient will not likely require thoracentesis. Patient was seen by Dr. Trejo yesterday, and he switched antibiotics to Rocephin. Patient did have Klebsiella in her urine culture. Blood culture is negative in the last 72 hours On 06/25/2018 patient was seen in oncology floor, the acute change in mental status, very lethargic, poorly responsive, hypothermic, nurses were unable to obtain a temperature. Initial blood pressure this morning was 93/60, remains on 2 L per nasal cannula her pulse ox is 97%, lung sounds are diminished bilaterally, today's chest x-ray was reviewed and showed, moderate-sized bilateral pleural effusions and moderate central vascular congestion. There is associated bibasilar atelectasis infiltrate. Patient was noted to develop 2+ bilateral lower extremity edema. Patient is unable to eat, her states her appetite has been quite poor, and she is having epigastric discomfort with eating again. As of Monday patient was no longer a candidate for bone marrow transplant in view of medical debility, and weakness. Medical oncology felt that the shins disease was progressing quite rapidly and she would be unlikely that she would be able to get stronger and chemotherapy was recommended. His lab work has been reviewed, WBCs 1.8, hemoglobin is 9.1, platelet count was 11, sodium was 137, potassium is 3.7, chloride is 118, CO2 is 12, B1 is 42, creatinine 0.91, plasma lactic acid was 2.3, we spoke to the patient's , patient remains a full code, her prognosis is extremely guarded. Patient will be transferred to the intensive care unit, for symptoms consistent with suspected sepsis Objective - Vital Signs Vital signs: Vital Signs Temp 92.4 F L 06/25/18 12:22 Pulse 84 06/25/18 14:00 Resp 12 06/25/18 14:00 BP 86/71 06/25/18 14:00 Pulse Ox 96 06/25/18 14:00 Intake & Output 06/24/18 06/25/18 06/25/18 18:59 06:59 18:59 Intake Total 560 25 Output Total 0 400 Balance 560 -375 Weight 73.6 kg Intake: IV 200 25 Sodium Chloride 0.9% 1, 200 25 000 ml @ 25 mls/hr IV . Q24H DONALD Rx#:[id number] Oral 360 Output: Urine 0 400 Other: Voiding Method Bedside Commode Bedside Commode Diaper # Voids 2 - Exam GENERAL EXAM: Lethargic, frail, pale 68-year-old white female, somnolent, poorly responsive HEENT: PERRLA, EOMI, pale conjunctivae, no icterus, dry mucous membranes, no neck masses, no JVD, no stridor. CHEST: No chest wall deformity. Symmetrical expansion. LUNGS: Equal air entry no crackles, no rhonchi no wheezes. Continues to have diminished breath sounds at the left base. CVS: Regular rate and rhythm, normal S1 and S2, no gallops, no murmurs, no rubs ABDOMEN: Soft, nontender. No hepatosplenomegaly, normal bowel sounds, no guarding or rigidity. EXTREMITIES: No clubbing, no cyanosis, 2+ pulses and upper and lower extremities. Bilateral lower extremity edema MUSCULOSKELETAL: Muscle strength and tone normal. SPINE: No scoliosis or deformity CENTRAL NERVOUS SYSTEM: Lethargic, no focal deficits, tone is normal in all 4 extremities. - Labs CBC & Chem 7: 06/25/18 09:31 06/25/18 09:31 Labs: Abnormal Lab Results - Last 24 Hours (Table) 06/25/18 06/25/18 06/25/18 Range/Units 09:31 09:31 11:07 WBC 1.8 L (3.8-10.6) k/uL RBC 3.11 L (3.80-5.40) m/uL Hgb 9.1 L (11.4-16.0) gm/dL Hct 29.3 L (34.0-46.0) % RDW 17.6 H (11.5-15.5) % Plt Count 11 L* (150-450) k/uL Neutrophils # (Manual) 0.80 L (1.3-7.7) k/uL Lymphocytes # (Manual) 0.49 L (1.0-4.8) k/uL Metamyelocytes # (Man) 0.02 H (0) k/uL Myelocytes # (Manual) 0.04 H (0) k/uL Nucleated RBCs 4 H (0-0) /100 WBC Chloride 118 H (98-107) mmol/L Carbon Dioxide 12 L (22-30) mmol/L BUN 42 H (7-17) mg/dL Glucose 129 H (74-99) mg/dL POC Glucose (mg/dL) (75-99) mg/dL Plasma Lactic Acid Bobby 2.3 H* (0.7-2.0) mmol/L Calcium 7.5 L (8.4-10.2) mg/dL 06/25/18 Range/Units 12:19 WBC (3.8-10.6) k/uL RBC (3.80-5.40) m/uL Hgb (11.4-16.0) gm/dL Hct (34.0-46.0) % RDW (11.5-15.5) % Plt Count (150-450) k/uL Neutrophils # (Manual) (1.3-7.7) k/uL Lymphocytes # (Manual) (1.0-4.8) k/uL Metamyelocytes # (Man) (0) k/uL Myelocytes # (Manual) (0) k/uL Nucleated RBCs (0-0) /100 WBC Chloride (98-107) mmol/L Carbon Dioxide (22-30) mmol/L BUN (7-17) mg/dL Glucose (74-99) mg/dL POC Glucose (mg/dL) 143 H (75-99) mg/dL Plasma Lactic Acid Bobby (0.7-2.0) mmol/L Calcium (8.4-10.2) mg/dL Microbiology - Last 24 Hours (Table) 06/20/18 21:18 Blood Culture - Preliminary Blood No Growth after 96 hours Assessment and Plan Plan: Assessment: #1. Neutropenic sepsis, and septic shock #2. Pulmonary edema #3. Hypotension, altered mental status related to sepsis #4. Elevated plasma lactic acidosis #5. Urinary tract infection with Klebsiella pneumonia #6. Myelodysplastic syndrome and myelofibrosis #7. Pancytopenia #8. Hypotension, weakness, fatigue, anorexia #9. Epigastric discomfort #10. Non-anion gap metabolic acidosis #11. 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 Blood cultures have been ordered and are pending at this time, lactic acid was mildly elevated at 2.3, but patient shows signs of fluid overload pulmonary edema, and severe lower extremity edema. Will start the patient on low-dose levofed, hydrocortisone 100 mg every 8 hours, continue current antibiotic coverage. Overall prognosis is quite guarded, in view of patient's rapid progression of myelofibrosis, sepsis. CODE STATUS needs to be addressed. She is critically ill, her condition is worsening. She will likely require insertion of central line, there is a likelihood patient will further deteriorate. We'll continue to closely follow, prognosis is definitely very guarded I performed a history & physical examination of the patient and discussed their management with my nurse practitioner, Chandni Martins. I reviewed the nurse practitioner's note and agree with the documented findings and plan of care. Lung sounds are few bibasilar crackles. The findings and the impression was discussed with the patient. I attest to the documentation by the nurse practitioner. Time with Patient: Greater than 30
[2018-06-25] MEDS: HYDROCORTISONE SUCCINATE 100 MG/2 ML VIAL IV SCH (16:35)
[2018-06-25] MEDS ORDERED: SODIUM CHLORIDE 0.9% 1,000 ML IV ONE (18:13)
[2018-06-25] MEDS ORDERED: NOREPINEPHRINE 16 MG in SODIUM CHLORIDE 0.9% 250 ML IV SCH (19:45)
[2018-06-25] MEDS: SODIUM CHLORIDE 0.9% 1,000 ML IV SCH (20:48)
--- NOTE | 2018-06-25 22:40 | PCN ---
PROCEDURE NOTE TRIPLE LUMEN CATHETER PLACEMENT: Indication: Hemodynamic monitoring/Intravenous access. Crown Presser: Dr. Botello. DESCRIPTION OF PROCEDURE: There was informed consent. A time-out was completed verifying correct patient, procedure, site, positioning, and implant(s) or special equipment if applicable. The patient was placed in a dependent position appropriate for triple lumen catheter placement based on the vein to be cannulated. The patient's right groin was prepped and draped in sterile fashion. Next 1% Lidocaine was used to anesthetize the surrounding skin area. A triple lumen 9F Cordis catheter was introduced into the right femoral vein using Seldinger technique. The catheter was threaded smoothly over the guide wire and appropriate blood return was obtained. Each lumen of the catheter was evacuated of air and flushed with sterile saline. The catheter was then sutured in place to the skin and a sterile dressing applied. Perfusion to the extremity distal to the point of catheter insertion was checked and found to be adequate. There were no immediate complications. No x-rays were needed. We will continue to follow closely. No additional recommendations are made. MMODL / IJN: [id number] /
[2018-06-26] MEDS: PIPERACILLIN-TAZOBACTAM 3.375 GM in SODIUM CHLORIDE 0.9% 100 ML IVPB SCH ×2
[2018-06-26] MEDS: HYDROCORTISONE SUCCINATE 100 MG/2 ML VIAL IV SCH
[2018-06-26 00:16] VITALS: TEMP 97.6
[2018-06-26] MEDS: HYDROmorphone 0.5 MG/0.5 ML SYRINGE IVP PRN ×2 (02:42→02:51)
[2018-06-26] MEDS ORDERED: ARTIFICIAL TEARS-HYPROMELLOSE DROPS 15 ML BTL BOTH EYES PRN (02:46)
[2018-06-26] MEDS ORDERED: SCOPOLAMINE 1.5MG/72HR PATCH TRANSDERM SCH (03:00)
[2018-06-26] MEDS: MORPHINE SULFATE (100 MG/2 ML) 100 MG in SODIUM CHLORIDE 0.9% 100 ML IV SCH ×2 (03:28→08:18)
[2018-06-26 03:31] VITALS: BP 121/77
[2018-06-26 06:06] VITALS: PULSE 89; RESP 13
--- NOTE | 2018-06-26 06:21 | P.PN ---
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 The patient is scheduled for bone marrow transplant in September 2018. Patient is complaining of significant weakness, fatigue, poor appetite. She denies having any fever or chills. No nausea or vomiting. No diarrhea. She was at oncology office and attempted fluid resuscitation was done the patient was then sent into the hospital for further evaluation and antibiotics. Currently white count is 1.3, hemoglobin 6.5 and she was scheduled for 1 unit of packed RBCs today. Platelet count is 18. Creatinine 0.57, lactic acid was 1.4. Troponins were negative on 3 draws. Albumin 1.4, amylase and lipase were normal and cortisol level was normal. Urinalysis was nitrate positive, leukoesterase small, WBC 28 and bacteria few. Patient does complain of dysuria prior to admission. She currently has a Ardon catheter that is quite uncomfortable for her. Chest x- ray done today shows basilar atelectasis versus pneumonia, effusion. Echocardiogram reveals EF of 55-60%, mild mitral regurgitation mild tricuspid regurgitation, no pulmonary hypertension. No mention of vegetation. Blood cultures are no growth after 24 hours. Patient states that she is not feeling any better since arrival. 06/23/2018 patient is feeling somewhat better today. Continues to have some low -grade fever no chills or rigors. Has profound fatigue related to her MDS. She is denying stomach and nausea or emesis appetites poor is having difficulty with her protein diet here. 06/25/2018 patient's status has worsened she's now required transfer back to the intensive care unit because of hypotension requiring vasopressor therapy.she has weakness and altered mentation Objective - Vital Signs Vital signs: Vital Signs Temp 97.5 F L 06/25/18 22:00 Pulse 112 H 06/25/18 23:00 Resp 20 06/25/18 23:00 BP 91/58 06/25/18 23:00 Pulse Ox 89 L 06/25/18 23:00 Intake & Output 06/25/18 06/25/18 06/26/18 06:59 18:59 06:59 Intake Total 560 969.041 4912.106 Output Total 0 497 240 Balance 560 70.437 1161.106 Weight 73.6 kg Intake: IV 409 151 2443 Piperacillin-Tazobactam 3 100 .375 gm In Sodium Chloride 0.9% 100 ml @ 25 mls/hr IVPB Q8HR [facility] Rx# :[id number] Sodium Chloride 0.9% 1, 200 75 100 000 ml @ 25 mls/hr IV . Q24H [facility] Rx#:[id number] Sodium Chloride bolus 999 Vancomycin 1,000 mg In 250 Sodium Chloride 0.9% 250 ml @ 125 mls/hr IVPB BID [facility]AL[facility] Rx#:[id number] Intake, IV Titration 54.437 52.106 Amount Norepinephrine 16 mg In 52.106 Sodium Chloride 0.9% 250 ml @ Titrate IV .Q0M [facility] Rx#:[id number] Norepinephrine 4 mg In 54.437 Sodium Chloride 0.9% 250 ml @ Titrate IV .Q0M [facility] Rx#:[id number] Oral 360 Blood Product 338 Platelet Irr Pheresis 338 Acda1 Unit [id number] Output: Urine 0 497 240 Other: Voiding Method Bedside Commode Indwelling Catheter Indwelling Catheter # Voids 2 - Exam Gen: This is a thin 68-year-old female she is an ICU bed sleepy HEENT: Head is atraumatic, normocephalic. Pupils equal, round. Sclerae is anicteric. Conjunctiva pale. Mucous members of the mouth are dry. There is a lesion on the tip of the tongue the right side. NECK: Supple. No JVD. No lymphadenopathy. No thyromegaly. LUNGS: Clear to auscultation. No wheezes or rhonchi. No intercostal retractions. HEART: Regular rate and rhythm. No murmur. ABDOMEN: Soft. Bowel sounds are present. No masses. No tenderness. EXTREMITIES: No pedal edema. No calf tenderness. NEUROLOGICAL: Patient sleepy awakens but not conversational - Labs CBC & Chem 7: 06/25/18 09:31 18 09:31 Labs: Abnormal Lab Results - Last 24 Hours (Table) 06/22/18 06/25/18 06/25/18 Range/Units 08:08 09:31 09:31 WBC 1.8 L (3.8-10.6) k/uL RBC 3.11 L (3.80-5.40) m/uL Hgb 9.1 L (11.4-16.0) gm/dL Hct 29.3 L (34.0-46.0) % RDW 17.6 H (11.5-15.5) % Plt Count 11 L* (150-450) k/uL Neutrophils # (Manual) 0.80 L (1.3-7.7) k/uL Lymphocytes # (Manual) 0.49 L (1.0-4.8) k/uL Metamyelocytes # (Man) 0.02 H (0) k/uL Myelocytes # (Manual) 0.04 H (0) k/uL Nucleated RBCs 4 H (0-0) /100 WBC Chloride 118 H (98-107) mmol/L Carbon Dioxide 12 L (22-30) mmol/L BUN 42 H (7-17) mg/dL Glucose 129 H (74-99) mg/dL POC Glucose (mg/dL) (75-99) mg/dL Plasma Lactic Acid Bobby (0.7-2.0) mmol/L Calcium 7.5 L (8.4-10.2) mg/dL Crossmatch See Detail 06/25/18 06/25/18 06/25/18 Range/Units 11:07 12:19 15:59 WBC (3.8-10.6) k/uL RBC (3.80-5.40) m/uL Hgb (11.4-16.0) gm/dL Hct (34.0-46.0) % RDW (11.5-15.5) % Plt Count (150-450) k/uL Neutrophils # (Manual) (1.3-7.7) k/uL Lymphocytes # (Manual) (1.0-4.8) k/uL Metamyelocytes # (Man) (0) k/uL Myelocytes # (Manual) (0) k/uL Nucleated RBCs (0-0) /100 WBC Chloride (98-107) mmol/L Carbon Dioxide (22-30) mmol/L BUN (7-17) mg/dL Glucose (74-99) mg/dL POC Glucose (mg/dL) 143 H (75-99) mg/dL Plasma Lactic Acid Bobby 2.3 H* 3.5 H* (0.7-2.0) mmol/L Calcium (8.4-10.2) mg/dL Crossmatch 06/25/18 Range/Units 22:48 WBC (3.8-10.6) k/uL RBC (3.80-5.40) m/uL Hgb (11.4-16.0) gm/dL Hct (34.0-46.0) % RDW (11.5-15.5) % Plt Count (150-450) k/uL Neutrophils # (Manual) (1.3-7.7) k/uL Lymphocytes # (Manual) (1.0-4.8) k/uL Metamyelocytes # (Man) (0) k/uL Myelocytes # (Manual) (0) k/uL Nucleated RBCs (0-0) /100 WBC Chloride (98-107) mmol/L Carbon Dioxide (22-30) mmol/L BUN (7-17) mg/dL Glucose (74-99) mg/dL POC Glucose (mg/dL) (75-99) mg/dL Plasma Lactic Acid Bobby 2.8 H* (0.7-2.0) mmol/L Calcium (8.4-10.2) mg/dL Crossmatch Microbiology - Last 24 Hours (Table) 06/20/18 21:18 Blood Culture - Preliminary Blood No Growth after 120 hours Laboratory Results WBC 1.8 k/uL (3.8-10.6) L 06/25/18 09:31 RBC 3.11 m/uL (3.80-5.40) L 06/25/18 09:31 Hgb 9.1 gm/dL (11.4-16.0) L 06/25/18 09:31 Hct 29.3 % (34.0-46.0) L 06/25/18 09:31 MCV 94.2 fL (80.0-100.0) 06/25/18 09:31 MCH 29.4 pg (25.0-35.0) 06/25/18 09:31 MCHC 31.2 g/dL (31.0-37.0) 06/25/18 09:31 RDW 17.6 % (11.5-15.5) H 06/25/18 09:31 Plt Count 11 k/uL (150-450) L* 06/25/18 09:31 Neutrophils % (Manual) 48 % 06/25/18 09:31 Band Neutrophils % 1 % 06/25/18 09:31 Lymphocytes % (Manual) 27 % 06/25/18 09:31 Monocytes % (Manual) 21 % 06/25/18 09:31 Eosinophils % (Manual) 1 % 06/24/18 07:05 Metamyelocytes % 1 % 06/25/18 09:31 Myelocytes % 2 % 06/25/18 09:31 Neutrophils # (Manual) 0.80 k/uL (1.3-7.7) L 06/25/18 09:31 Lymphocytes # (Manual) 0.49 k/uL (1.0-4.8) L 06/25/18 09:31 Monocytes # (Manual) 0.38 k/uL (0-1.0) 06/25/18 09:31 Eosinophils # (Manual) 0.02 k/uL (0-0.7) 06/24/18 07:05 Metamyelocytes # (Man) 0.02 k/uL (0) H 06/25/18 09:31 Myelocytes # (Manual) 0.04 k/uL (0) H 06/25/18 09:31 Nucleated RBCs 4 /100 WBC (0-0) H 06/25/18 09:31 Manual Slide Review Performed 06/25/18 09:31 Toxic Vacuolation Present 06/25/18 09:31 Large Platelets Present 06/25/18 09:31 Polychromasia Present 06/22/18 05:47 Hypochromasia Marked 06/25/18 09:31 Poikilocytosis Slight 06/25/18 09:31 Poikilocytosis (manual Present 06/22/18 05:47 Basophilic Stippling Present 06/20/18 18:02 Anisocytosis Slight 06/25/18 09:31 Anisocytosis (manual) Present 06/23/18 04:55 Macrocytosis Slight 06/22/18 05:47 Fragmented RBCs Present 06/24/18 07:05 PT 13.5 sec (9.0-12.0) H 06/20/18 18:02 INR 1.3 (<1.2) H 06/20/18 18:02 APTT 27.3 sec (22.0-30.0) 06/20/18 18:02 Sodium 137 mmol/L (137-145) 06/25/18 09:31 Potassium 3.7 mmol/L (3.5-5.1) 06/25/18 09:31 Chloride 118 mmol/L (98-107) H 06/25/18 09:31 Carbon Dioxide 12 mmol/L (22-30) L 06/25/18 09:31 Anion Gap 7 mmol/L 06/25/18 09:31 BUN 42 mg/dL (7-17) H 06/25/18 09:31 Creatinine 0.91 mg/dL (0.52-1.04) 06/25/18 09:31 Est GFR (CKD-EPI)AfAm 75 (>60 ml/min/1.73 sqM) 06/25/18 09:31 Est GFR (CKD-EPI)NonAf 65 (>60 ml/min/1.73 sqM) 06/25/18 09:31 Glucose 129 mg/dL (74-99) H 06/25/18 09:31 POC Glucose (mg/dL) 143 mg/dL (75-99) H 06/25/18 12:19 POC Glu [employer]itting [employer] ID Mello, Ven[place] 06/25/18 12:19 Lactic Ac Sepsis Rflx Y 06/25/18 23:41 Plasma Lactic Acid Bobby 2.8 mmol/L (0.7-2.0) H* 06/25/18 22:48 Calcium 7.5 mg/dL (8.4-10.2) L 06/25/18 09:31 Magnesium 2.1 mg/dL (1.6-2.3) 06/22/18 05:47 Total Bilirubin 1.2 mg/dL (0.2-1.3) 06/20/18 18:02 AST 15 U/L (14-36) 06/20/18 18:02 ALT 37 U/L (9-52) 06/20/18 18:02 Alkaline Phosphatase 27 U/L (38-126) L 06/20/18 18:02 Total Creatine Kinase <20 U/L (30-135) L 06/21/18 07:18 CK-MB (CK-2) 0.8 ng/mL (0.0-2.4) 06/21/18 07:18 CK-MB (CK-2) Rel Index 06/21/18 07:18 Troponin I <0.012 ng/mL (0.000-0.034) 06/22/18 08:17 Total Protein 3.1 g/dL (6.3-8.2) L 06/20/18 18:02 Albumin 1.4 g/dL (3.5-5.0) L 06/20/18 18:02 Amylase <30 U/L (30-110) L 06/21/18 19:57 Lipase <10 U/L (23-300) L 06/21/18 19:57 Cortisol 34 ug/dL 06/25/18 09:31 Urine Color Yellow 06/20/18 14:17 Urine Appearance Clear (Clear) 06/20/18 14:17 Urine pH 6.0 (5.0-8.0) 06/20/18 14:17 Ur Specific [place] 1.018 (1.001-1.035) 06/20/18 14:17 Urine Protein 1+ (Negative) H 06/20/18 14:17 Urine Glucose (UA) Negative (Negative) 06/20/18 14:17 Urine Ketones Trace (Negative) H 06/20/18 14:17 Urine Blood Negative (Negative) 06/20/18 14:17 Urine Nitrite Positive (Negative) H 06/20/18 14:17 Urine Bilirubin Negative (Negative) 06/20/18 14:17 Urine Urobilinogen <2.0 mg/dL (<2.0) 06/20/18 14:17 Ur Leukocyte Esterase Small (Negative) H 06/20/18 14:17 Urine WBC 28 /hpf (0-5) H 06/20/18 14:17 Ur Squamous Epith Cells 2 /hpf (0-4) 06/20/18 14:17 Urine Bacteria Few /hpf (None) H 06/20/18 14:17 Urine Mucus Few /hpf (None) H 06/20/18 14:17 Vancomycin Trough 24.8 ug/mL 06/23/18 17:20 Blood Type A Positive 06/22/18 08:08 Blood Type Recheck No 06/22/18 08:08 Antibody Screen NEGATIVE 06/22/18 08:08 Crossmatch See Detail 06/22/18 08:08 Transfuse Platelets 06/25/18 06/25/18 13:00 Spec Expiration Date 06/25/2018230706/22/18 08:08 Microbiology 06/20/18 21:18 Blood Blood Culture - Preliminary No Growth after 120 hours Assessment and Plan (1) Myelodysplastic syndrome Current Visit: Yes Status: Acute Priority: High Code(s): D46.9 - MYELODYSPLASTIC SYNDROME, UNSPECIFIED SNOMED Code(s): 127516676 (2) Urinary tract infection Narrative/Plan: Pleasant woman that has long-standing history of hematological abnormalities in his developed myelodysplastic syndrome following a known diagnosis of primary myelofibrosis. She relates that she has been evaluated at [facility] for transplant. She was evaluated at the oncologist office she was profoundly weak and brought in the hospital for transfusion support. The patient's is wondering why she is not transfused to hemoglobin of 12 or 14 which she has read as normal. We discussed that blood pressures resource and every transfusion is actually fraught with multiple potential complications and as long as the patient is stable hemoglobin of 7 is medically acceptable. At this time the patient presents with evidence of illness and workup has been initiated. She's been treated with vancomycin and cefepime with concerns to febrile neutropenia although significant fever is not being seen since coming to Hospital but was having subjective fever before admission. There is some current data reveals that she likely has urinary tract infection and will continue current antibiotic therapy until further data is available. Fortunately she's feeling better with hydration and antibiotic therapy. 06/23/2018 patient not feeling well. However is not having high-grade fevers or chills. Appetite is poor, little desire to eat. Urine culture with Klebsiella that is carrion susceptible. We'll be able to transition antibiotic therapy to Rocephin and then as she improves plans for her home antibiotic therapy can then be made depending on her overall course shall be taken. 06/25/2018 patient's status has worsened, she became hypotensive requiring transient intensive care unit fluid resuscitation and suppressive therapy required. Her hematological abnormality is continue to worsen and requiring packed red blood cell and platelet transfusions today. Antimicrobial therapy transition to Zosyn and Vanco with the acute change, we'll broaden further quickly if there is no improvement craning antifungal therapy given her hematological malignancy. Current Visit: Yes Status: Acute Code(s): N39.0 - URINARY TRACT INFECTION, SITE NOT SPECIFIED SNOMED Code(s): 89572171 (3) Klebsiella infection Current Visit: Yes Status: Acute Code(s): A49.8 - OTHER BACTERIAL INFECTIONS OF UNSPECIFIED SITE SNOMED Code(s): 027797585
--- NOTE | 2018-06-26 09:44 | P.PN ---
Subjective Progress Note Date: 06/26/18 Principal diagnosis: Acute neutropenic sepsis, septic shock This 68-year-old white female patient with history of miyelodysplastic syndrome , who is being considered for bone marrow transplant, presented to her medical oncologist office yesterday for monitoring and transfusions. Patient was noted to be very weak, fatigued, hypotensive. She denied any fevers, patient has been unable to eat related to severe sharp epigastric discomfort after eating. No vomiting or diarrhea. She was sent to the hospital for further evaluation and treatment, on admission was in the 70s over 40s, she was given 2 L IV fluid bolus. Lactic acid was mildly elevated at 2.1, blood work revealed pancytopenia , WBC of 1.6, hemoglobin of 7.7, platelet count of 21, INR is 1.3, sodium is 131 , potassium is 4.7, chloride is 109, CO2 is 18 BUN of 30 and creatinine of 0.53 , bun is negative 3, urinalysis showed white blood cells, small amount of leuks , few bacteria and mucus. Blood cultures were drawn and pending at this time, patient was started on broad-spectrum antibiotic in the form of cefepime. She was given a dose of IV hydrocortisone in the emergency department, chest x-ray showed mild pulmonary congestion, and blunting of the costophrenic angles consistent for congestive heart failure small bilateral pleural effusions. He was given a dose of IV Lasix in the emergency department. Patient was then admitted to the oncology floor, and her blood pressures remain hypotensive 84/ 51, she appears to be pale and fatigued, denies acute distress unless she eats. Afebrile. Serum cortisol is been ordered. Reevaluated today on 06/22/2018, patient was transferred to the ICU yesterday after I saw her. Did not require any pressors overnight, her mean arterial pressure is in the 65 range, patient responded well to fluids, and her urine output has been excellent. Patient remains on broad-spectrum antibiotics, remains on cefepime and vancomycin. Hemoglobin is noted to be low today at 6.5 , hence we'll arrange for a unit of packed RBCs to be given before we transfer the patient back to the ICU plan oncology floor. In the meantime the cultures remain negative, and antibiotics as ordered will remain on board temporarily. The patient denies any cough wheezing or shortness of breath denies any chest pain no nausea no vomiting no abdominal pain, she just feels generally weak. WBC count remains low at 1.3 hemoglobin is 6.5 platelets are 18,000. Basic metabolic profile and renal profile are relatively normal she does have low bicarb, and the patient has what looks like a non-anion gap hyperchloremic metabolic acidosis. Patient was reevaluated today on 06/23/2018, patient remains in the ICU, feeling generally weak, and tired, continues to have pancytopenia, WBC count is 1.2 hemoglobin is 7.4 and her platelets are only 15,000. Patient denies any shortness of breath, although her chest x-ray is showing good size moderate sized pleural effusion on the left side. There is also a small right-sided pleural effusion. All her labs were reviewed, chest x-ray was reviewed reviewed with the patient, and I have recommended eventually thoracentesis if she doesn't improve with diuretics. Patient expects extremely against the idea of thoracentesis, hence I will try treatment with Lasix, and if she doesn't improve much may have to seriously consider platelets transfusion and thoracentesis. Looking at the notes from the oncologist, apparently the feeling is that the patient has extremely poor prognosis, and even entertaining the possibility of comfort measures only. Not felt to be a good candidate for bone marrow transplant. Seen on 06/24/2018, patient feels generally weak, tired, she is on the oncology floor, transferred out of the ICU yesterday. Continues to have pancytopenia, WBC count is 1.6 hemoglobin is 8.4 platelets are 16,000. Basic metabolic profile is basically the same showing hyperchloremic non-anion gap metabolic acidosis. Chest x-ray continues to show left pleural effusion and atelectasis, definitely improved compared to the chest x-ray I reviewed yesterday. There is definitely better aeration of the left lung base. Patient did receive 1 dose of Lasix yesterday. And I plan to continue Lasix on a daily basis patient will not likely require thoracentesis. Patient was seen by Dr. Trejo yesterday, and he switched antibiotics to Rocephin. Patient did have Klebsiella in her urine culture. Blood culture is negative in the last 72 hours On 06/25/2018 patient was seen in oncology floor, the acute change in mental status, very lethargic, poorly responsive, hypothermic, nurses were unable to obtain a temperature. Initial blood pressure this morning was 93/60, remains on 2 L per nasal cannula her pulse ox is 97%, lung sounds are diminished bilaterally, today's chest x-ray was reviewed and showed, moderate-sized bilateral pleural effusions and moderate central vascular congestion. There is associated bibasilar atelectasis infiltrate. Patient was noted to develop 2+ bilateral lower extremity edema. Patient is unable to eat, her states her appetite has been quite poor, and she is having epigastric discomfort with eating again. As of Monday patient was no longer a candidate for bone marrow transplant in view of medical debility, and weakness. Medical oncology felt that the shins disease was progressing quite rapidly and she would be unlikely that she would be able to get stronger and chemotherapy was recommended. His lab work has been reviewed, WBCs 1.8, hemoglobin is 9.1, platelet count was 11, sodium was 137, potassium is 3.7, chloride is 118, CO2 is 12, B1 is 42, creatinine 0.91, plasma lactic acid was 2.3, we spoke to the patient's , patient remains a full code, her prognosis is extremely guarded. Patient will be transferred to the intensive care unit, for symptoms consistent with suspected sepsis. On 06/26/2018 patient is seen again in follow-up in the intensive care unit, last night patient's condition continued to deteriorate, patient was having increased pain in the epigastric area, she continued to be hypotensive, vasopressors were started, central line was inserted in the right femoral vein by Dr. Botello yesterday. Repeat cultures were collected and sent, pending at this time, patient was covered with empiric antibiotics. Patient was confused, was having increasing discomfort, and family opted to proceed with comfort care measures only. This morning were seen this patient in the intensive care unit, she is quiet obtunded, does not appear to be in any distress, comfort care protocol was instituted, and she is currently on morphine drip at 30 mg per hour , and 0.9 normal seen at a rate of 20 ML per hour. Family is at the bedside. Objective - Vital Signs Vital signs: Vital Signs Temp 97.6 F 06/26/18 00:00 Pulse 89 06/26/18 06:00 Resp 13 06/26/18 06:00 BP 121/77 06/26/18 03:30 Pulse Ox 94 L 06/26/18 08:28 Intake & Output 06/25/18 06/26/18 06/26/18 18:59 06:59 18:59 Intake Total 075.512 8150.704 36.04 Output Total 497 369 Balance 70.437 1343.704 36.04 Weight 73.6 kg Intake: IV 175 1549 Piperacillin-Tazobactam 3 100 100 .375 gm In Sodium Chloride 0.9% 100 ml @ 25 mls/hr IVPB Q8HR [facility] Rx# :[id number] Sodium Chloride 0.9% 1, 75 200 000 ml @ 25 mls/hr IV . Q24H [facility] Rx#:[id number] Sodium Chloride bolus 999 Vancomycin 1,000 mg In 250 Sodium Chloride 0.9% 250 ml @ 125 mls/hr IVPB BID [facility] Rx#:[id number] Intake, IV Titration 54.437 163.704 36.04 Amount Morphine Sulfate (100 mg/ 44.098 36.04 2 ml) 100 mg In Sodium Chloride 0.9% 100 ml @ 1 MG/HR 1.02 mls/hr IV . Q24H [facility] Rx#:[id number] Norepinephrine 16 mg In 119.606 Sodium Chloride 0.9% 250 ml @ Titrate IV .Q0M [facility] Rx#:[id number] Norepinephrine 4 mg In 54.437 Sodium Chloride 0.9% 250 ml @ Titrate IV .Q0M [facility] Rx#:[id number] Blood Product 338 Platelet Irr Pheresis 338 Acda1 Unit [id number] Output: Urine 497 369 Other: Voiding Method Indwelling Catheter Indwelling Catheter - Exam GENERAL EXAM: frail, pale 68-year-old white female, obtunded, Kussmaul respirations HEENT: PERRLA, EOMI, pale conjunctivae, no icterus, dry mucous membranes, no neck masses, no JVD, no stridor. CHEST: No chest wall deformity. Symmetrical expansion. LUNGS: diminished breath sounds CVS: Regular rate and rhythm, normal S1 and S2, no gallops, no murmurs, no rubs ABDOMEN: Soft, nontender. No hepatosplenomegaly, normal bowel sounds, no guarding or rigidity. EXTREMITIES: No clubbing, no cyanosis, 2+ pulses and upper and lower extremities. Bilateral lower extremity edema MUSCULOSKELETAL: Muscle strength and tone normal. SPINE: No scoliosis or deformity CENTRAL NERVOUS SYSTEM: Lethargic, no focal deficits, tone is normal in all 4 extremities. - Labs CBC & Chem 7: 06/25/18 09:31 06/25/18 09:31 Labs: Abnormal Lab Results - Last 24 Hours (Table) 06/22/18 06/25/18 06/25/18 Range/Units 08:08 09:31 09:31 WBC 1.8 L (3.8-10.6) k/uL RBC 3.11 L (3.80-5.40) m/uL Hgb 9.1 L (11.4-16.0) gm/dL Hct 29.3 L (34.0-46.0) % RDW 17.6 H (11.5-15.5) % Plt Count 11 L* (150-450) k/uL Neutrophils # (Manual) 0.80 L (1.3-7.7) k/uL Lymphocytes # (Manual) 0.49 L (1.0-4.8) k/uL Metamyelocytes # (Man) 0.02 H (0) k/uL Myelocytes # (Manual) 0.04 H (0) k/uL Nucleated RBCs 4 H (0-0) /100 WBC Chloride 118 H (98-107) mmol/L Carbon Dioxide 12 L (22-30) mmol/L BUN 42 H (7-17) mg/dL Glucose 129 H (74-99) mg/dL POC Glucose (mg/dL) (75-99) mg/dL Plasma Lactic Acid Bobby (0.7-2.0) mmol/L Calcium 7.5 L (8.4-10.2) mg/dL Crossmatch See Detail 06/25/18 06/25/18 06/25/18 Range/Units 11:07 12:19 15:59 WBC (3.8-10.6) k/uL RBC (3.80-5.40) m/uL Hgb (11.4-16.0) gm/dL Hct (34.0-46.0) % RDW (11.5-15.5) % Plt Count (150-450) k/uL Neutrophils # (Manual) (1.3-7.7) k/uL Lymphocytes # (Manual) (1.0-4.8) k/uL Metamyelocytes # (Man) (0) k/uL Myelocytes # (Manual) (0) k/uL Nucleated RBCs (0-0) /100 WBC Chloride (98-107) mmol/L Carbon Dioxide (22-30) mmol/L BUN (7-17) mg/dL Glucose (74-99) mg/dL POC Glucose (mg/dL) 143 H (75-99) mg/dL Plasma Lactic Acid Bobby 2.3 H* 3.5 H* (0.7-2.0) mmol/L Calcium (8.4-10.2) mg/dL Crossmatch 06/25/18 Range/Units 22:48 WBC (3.8-10.6) k/uL RBC (3.80-5.40) m/uL Hgb (11.4-16.0) gm/dL Hct (34.0-46.0) % RDW (11.5-15.5) % Plt Count (150-450) k/uL Neutrophils # (Manual) (1.3-7.7) k/uL Lymphocytes # (Manual) (1.0-4.8) k/uL Metamyelocytes # (Man) (0) k/uL Myelocytes # (Manual) (0) k/uL Nucleated RBCs (0-0) /100 WBC Chloride (98-107) mmol/L Carbon Dioxide (22-30) mmol/L BUN (7-17) mg/dL Glucose (74-99) mg/dL POC Glucose (mg/dL) (75-99) mg/dL Plasma Lactic Acid Bobby 2.8 H* (0.7-2.0) mmol/L Calcium (8.4-10.2) mg/dL Crossmatch Microbiology - Last 24 Hours (Table) 06/20/18 21:18 Blood Culture - Preliminary Blood No Growth after 120 hours Assessment and Plan Plan: Assessment: #1. Neutropenic sepsis, and septic shock #2. Pulmonary edema #3. Hypotension, altered mental status related to sepsis #4. Elevated plasma lactic acidosis #5. Urinary tract infection with Klebsiella pneumonia #6. Myelodysplastic syndrome and myelofibrosis #7. Pancytopenia #8. Hypotension, weakness, fatigue, anorexia #9. Epigastric discomfort #10. Non-anion gap metabolic acidosis #11. 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 I performed a history & physical examination of the patient and discussed their management with my nurse practitioner, Chandni Martins. I reviewed the nurse practitioner's note and agree with the documented findings and plan of care. Lung sounds are few bibasilar crackles. The findings and the impression was discussed with the patient. I attest to the documentation by the nurse practitioner. Time with Patient: Greater than 30
--- NOTE | 2018-06-26 17:31 | P.PN ---
Subjective Progress Note Date: 06/25/18 Progress note being dictated for Dr. Russell. Interval history: This is a 68-year-old female admitted with hypertension sepsis , pulmonary edema, bilateral pneumonia, pancytopenia secondary to myelodysplastic syndrome, myelofibrosis and multiple other medical issues. Maintained on IV antibiotics. Developed hypotension, systolic blood pressures in the low 90s, hypothermic, unable to obtain temperature, fatigued, confused. Appears septic, ordered Zosyn, vancomycin with transfer to ICU. Cotton Candy Maker updated. Maintaining O2 sats of high 90s on 2 L nasal cannula. Unable to perform a review of systems, given patient's current confusion Active Medications Acetaminophen (Tylenol Tab) 650 mg PO Q6HR PRN PRN Reason: Fever and/ or Mild Pain Last Admin: 06/23/18 08:29 Dose: 650 mg Furosemide (Lasix) 20 mg PO DAILY [facility] Last Admin: 06/25/18 09:24 Dose: 20 mg Sodium Chloride (Saline 0.9%) 1,000 mls @ 25 mls/hr IV .Q24H [facility] Last Admin: 06/24/18 18:07 Dose: Not Given Ceftriaxone Sodium 2,000 mg/ (Sodium Chloride) 100 mls @ 100 mls/hr IVPB Q24HR [facility] Last Admin: 06/25/18 09:24 Dose: 100 mls/hr Piperacillin Sod/Tazobactam (Sod 3.375 gm/ Sodium Chloride) 100 mls @ 25 mls/ hr IVPB Q8HR [facility] Last Admin: 06/25/18 11:30 Dose: 25 mls/hr Vancomycin HCl 1,000 mg/ (Sodium Chloride) 250 mls @ 125 mls/hr IVPB BID [facility] Last Admin: 06/25/18 11:30 Dose: 125 mls/hr Miscellaneous Information (Potassium Per Protocol) 1 each MISCELLANE DAILY PRN ; Protocol PRN Reason: Per Protocol Pantoprazole Sodium (Protonix) 40 mg IVP BID [facility] Last Admin: 06/25/18 09:24 Dose: 40 mg Objective - Vital Signs Vital signs: Vital Signs Temp 96.9 F L 06/25/18 05:00 Pulse 84 06/25/18 10:45 Resp 18 06/25/18 10:45 BP 93/60 06/25/18 10:45 Pulse Ox 97 06/25/18 10:45 Intake & Output 06/24/18 06/25/18 06/25/18 18:59 06:59 18:59 Intake Total 560 Output Total 0 Balance 560 Intake: IV 200 Sodium Chloride 0.9% 1, 200 000 ml @ 25 mls/hr IV . Q24H [facility] Rx#:[id number] Oral 360 Output: Urine 0 Other: Voiding Method Bedside Commode Bedside Commode Diaper # Voids 2 - Exam PHYSICAL EXAM: VITAL SIGNS: As above GENERAL: Sitting up in bed, confused, picking at things in the air, chills, lethargic, decreased responsiveness HEENT: Conjunctivae normal. eyes normal. NECK: No JVD. No thyroid enlargement. No LNs CARDIOVASCULAR: S1, S2 muffled. No murmur RESPIRATION: Breath sounds diminished in the bases. No rhonchi or crackles. No bronchial breathing. ABDOMEN: Soft, nontender . No guarding. no masses palpable. Bowel sounds heard. LEGS: Positive bilateral lower extremity edema. no clubbing, no cyanosis. NERVOUS SYSTEM: Lethargic, confused. Diffuse weakness, unable to fully evaluate Microbiology 06/20/18 21:18 Blood Blood Culture - Preliminary No Growth after 96 hours - Labs CBC & Chem 7: 06/25/18 09:31 06/25/18 09:31 Labs: Abnormal Lab Results - Last 24 Hours (Table) 06/24/18 06/25/18 06/25/18 Range/Units 07:05 09:31 09:31 WBC 1.8 L (3.8-10.6) k/uL RBC 3.11 L (3.80-5.40) m/uL Hgb 9.1 L (11.4-16.0) gm/dL Hct 29.3 L (34.0-46.0) % RDW 17.6 H (11.5-15.5) % Plt Count 11 L* (150-450) k/uL Neutrophils # (Manual) 0.90 L 0.80 L (1.3-7.7) k/uL Lymphocytes # (Manual) 0.19 L 0.49 L (1.0-4.8) k/uL Metamyelocytes # (Man) 0.02 H (0) k/uL Myelocytes # (Manual) 0.04 H (0) k/uL Nucleated RBCs 1 H 4 H (0-0) /100 WBC Chloride 118 H (98-107) mmol/L Carbon Dioxide 12 L (22-30) mmol/L BUN 42 H (7-17) mg/dL Glucose 129 H (74-99) mg/dL Plasma Lactic Acid Bobby (0.7-2.0) mmol/L Calcium 7.5 L (8.4-10.2) mg/dL 06/25/18 Range/Units 11:07 WBC (3.8-10.6) k/uL RBC (3.80-5.40) m/uL Hgb (11.4-16.0) gm/dL Hct (34.0-46.0) % RDW (11.5-15.5) % Plt Count (150-450) k/uL Neutrophils # (Manual) (1.3-7.7) k/uL Lymphocytes # (Manual) (1.0-4.8) k/uL Metamyelocytes # (Man) (0) k/uL Myelocytes # (Manual) (0) k/uL Nucleated RBCs (0-0) /100 WBC Chloride (98-107) mmol/L Carbon Dioxide (22-30) mmol/L BUN (7-17) mg/dL Glucose (74-99) mg/dL Plasma Lactic Acid Bobby 2.3 H* (0.7-2.0) mmol/L Calcium (8.4-10.2) mg/dL Microbiology - Last 24 Hours (Table) 06/20/18 21:18 Blood Culture - Preliminary Blood No Growth after 96 hours Assessment and Plan Assessment: -Neutropenic sepsis, septic shock -Mental status, metabolic encephalopathy secondary to sepsis, hypotension -Possible bilateral pneumonia, left greater than right with pulmonary edema -Pancytopenia secondary to myelodysplastic syndrome as well as myelofibrosis -Klebsiella UTI -Severe leukopenia -Severe anemia status post transfusion -Hyponatremia -Hypoalbuminemia Plan: Continue on current medication regime ,monitoring and symptomatic treatment. Orders given for transfer to ICU, grounds/maintenance specialist , infectious disease updated. Oncology notified. Chest x-ray, blood cultures, lactic acid pending. Prior x-ray suggestive of pleural effusions, fluid overload, patient will probably require pressors. Family updated at bedside. Prognosis guarded, given multiple complex medical issues. Further recommendations to follow. The impression and plan of care has been dictated as directed. : I performed a history and examination of this patient, discussed the same with the dictator. I agree with the dictator's note ,documented as a scribe. Any additional findings or plans will be noted.
--- NOTE | 2018-06-27 00:26 | DS ---
DISCHARGE SUMMARY PRIMARY CAUSE OF : Myelofibrosis. OTHER DIAGNOSES: 1. Acute hypotension with possible severe sepsis present on admission possibly secondary to pneumonia. 2. Possible bilateral pneumonia, left more than the right, with pulmonary edema present on admission with possibly gram-negative. 3. Myelodysplastic syndrome. 4. Pancytopenia secondary to myelofibrosis sa well as myelodysplastic syndrome. 5. Klebsiella urinary tract infection. 6. Severe leukopenia with severe anemia, status post transfusion. 7. Hyponatremia. 8. Elevated plasma lactic acid on admission. 9. Hypoalbuminemia. 10.History of cholecystectomy. 11.History of degenerative joint disease. 12.NO CODE, NO CPR, NO VENT. HOSPITAL COURSE: This 68-year-old woman with a past medical history of multiple medical problems was admitted with neutropenic sepsis as well as multiple medications as mentioned earlier. The patient also had pneumonia and UTI also. Patient was given IV antibiotics. The patient needed multiple transfusions as well. The patient also had significant pancytopenia with white count 1.8 and hemoglobin 9.1 and platelets 11. The case was discussed with Dr. Salas, who discussed the case with [place]. The patient is currently not a candidate for bone marrow transplantation or any other aggressive treatment because of the poor condition. The patient was managed conservatively but subsequently the patient's condition deteriorated. The case was discussed with family at length and family would like to go with hospice care because of the grave prognosis. Comfort measures were continued. The patient because of above mentioned multiple medical issues. The patient was monitored in ICU, seen by multiple consultants. Prognosis remained guarded throughout hospitalization. Please refer to the multiple notes and staff notes and chart for further details. MMODL / IJN: [id number] /
[2018-06-27] MEDS ORDERED: VANCOMYCIN TROUGH DUE 1 EACH MISC MISCELLANE ONE (08:00)
--- NOTE | 2018-06-27 13:58 | CDI ---
Documentation Clarification Form Date: 06/27/18 From: Joi Capo Fozia Connie, C Programmer Hours-8:30 am & 5 pm M-F Admit Date: 06/20/2018 10:03:00 PM Patient Name: Corinna Lamar Visit Number: [id number] Discharge Date: 06/26/2018 10:27:00 AM ATTENTION: The Clinical Documentation Specialists (CDI) and [facility] Coding Staff appreciate your assistance in clarifying documentation. Please respond to the clarification below the line at the bottom and electronically sign. The CDI & [facility] Coding staff will review the response and follow-up if needed. Please note: Queries are made part of the Legal Health Record. If you have any questions, please contact the author of this message via ITS. Dr. Tito Russell, CHF is documented in the 06/21 consult, PNs 06/22, 06/23, 06/24, 06/25 & 06/26. History/Risk Factors: sepsis, pneumonia, met encephalopathy, critical illness myopathy, multiple myeloma, pancytopenia VS/Pulse OX: R-20, P-100, T-97.4, BP-77/48 BNP: none Echocardiogram Results: left ventricular systolic function is normal w EF between 55-60% 06/20 Chest X Ray: evidence of new congestive heart failure Treatment: IV Lasix 100 mg once stat on 06/20, 06/22 IV Lasix 20mg, 06/23 IV 40mg Lasix In your professional opinion, can you please clarify the acuity and type of CHF if known? Systolic Heart Failure Diastolic Heart Failure Systolic & Diastolic Heart Failure Acute Chronic Acute on Chronic Heart Failure Unable to Determine Other, please specify Chronic Diastolic Heart Failure MTDD
--- NOTE | 2018-07-18 13:40 | CDI ---
Date: 07/18/2018 12:11:16 PM From: DEAN Mercado Email: [email or web address] Admit Date: 06/20/2018 10:03:00 PM Patient Name: Corinna Lamar Visit Number: [id number] Discharge Date: 06/26/2018 10:27:00 AM ATTENTION: The Clinical Documentation Specialists (CDI) and [facility] Coding Staff appreciate your assistance in clarifying documentation. Please respond to the clarification below the line at the bottom and electronically sign. The CDI & [facility] Coding staff will review the response and follow-up if needed. Please note: Queries are made part of the Legal Health Record. If you have any questions, please contact the author of this message via ITS. Dr. Tito Russell The patient presented with Sepsis, Pneumonia and Pulmonary Edema History/Risk Factors: Myelodysplastic syndrome, Myelofibrosis, Pneumonia, leukopenia and probable COPD, transfusions and IV bolus for anemia and hypotension Tobacco use: previous smoker, none currently Clinical Indicators: weakness, fatigue, hypotensive, poor appetite Vital signs: RR 8 up to 33 at times, HR 89-115, BP 70/40- 120/70's Pulse oximetry: 73-99% Lung/Breathing assessment: diminished at the bases, few scattered crackles and rhonchi Treatment: Supplemental oxygen, IV Hydrocortisone, IV Lasix, O2: 2-5LNC In your professional opinion, can you please clarify if these findings signify one of the following conditions? Acuity Acute Chronic Acute on Chronic Specificity Respiratory Failure (further specify (if known)): With hypercapnia? (pCO2 >50 and pH <7.35) With hypoxia? (pO2 <60 mm Hg or SpO2 <91% on room air) Other Diagnosis, please specify Unable to determine acute hypoxic Respiratory Failure MTDD
== END 2018-06-26 10:27 | disposition expired | DRG 871 ==
LOC: EC 17:13 → 3NMEDONC 22:03 → 2SICU 06-21 17:53 → 3NMEDONC 06-24 02:26 → 2SICU 06-25 12:02
PROVIDERS: ADMIT Internal Medicine; ATTEND Internal Medicine
PROC: 30233N1 Transfusion of Nonautologous Red Blood Cells into Peripheral Vein, Percutaneous Approach (ICD-10-PCS; 2018-06-22)
PROC: 30233R1 Transfusion of Nonautologous Platelets into Peripheral Vein, Percutaneous Approach (ICD-10-PCS; principal; 2018-06-25)
PROC: 06HY33Z Insertion of Infusion Device into Lower Vein, Percutaneous Approach (ICD-10-PCS; 2018-06-25)
DX: A41.9 Sepsis, unspecified organism (principal); J18.9 Pneumonia, unspecified organism; R65.21 Severe sepsis with septic shock; G93.41 Metabolic encephalopathy; J96.01 Acute respiratory failure with hypoxia; G72.81 Critical illness myopathy; C90.00 Multiple myeloma not having achieved remission; R64 Cachexia; E87.2 Acidosis; I50.32 Chronic diastolic (congestive) heart failure; D47.1 Chronic myeloproliferative disease; E87.1 Hypo-osmolality and hyponatremia; N39.0 Urinary tract infection, site not specified; J98.11 Atelectasis; Z51.5 Encounter for palliative care; Z66 Do not resuscitate; I11.0 Hypertensive heart disease with heart failure; E87.8 Other disorders of electrolyte and fluid balance, not elsewhere classified; D70.3 Neutropenia due to infection; E88.09 Other disorders of plasma-protein metabolism, not elsewhere classified; E83.51 Hypocalcemia; I08.1 Rheumatic disorders of both mitral and tricuspid valves; D46.9 Myelodysplastic syndrome, unspecified; R50.81 Fever presenting with conditions classified elsewhere; M19.90 Unspecified osteoarthritis, unspecified site; I44.7 Left bundle-branch block, unspecified; B96.1 Klebsiella pneumoniae [K. pneumoniae] as the cause of diseases classified elsewhere; F17.201 Nicotine dependence, unspecified, in remission; Z68.24 Body mass index [BMI] 24.0-24.9, adult; Z85.6 Personal history of leukemia; Z90.49 Acquired absence of other specified parts of digestive tract; Z87.01 Personal history of pneumonia (recurrent); Z98.51 Tubal ligation status; Z96.641 Presence of right artificial hip joint; Z83.3 Family history of diabetes mellitus; Z80.1 Family history of malignant neoplasm of trachea, bronchus and lung; Z81.1 Family history of alcohol abuse and dependence; F32.9 Major depressive disorder, single episode, unspecified
CPT/HCPCS: 36415; 71045; 80048; 80053; 80202; 81001; 82150; 82533; 82550; 82553; 83605; 83690; 83735; 84132; 84484; 85025; 85610; 85730; 86850; 86900; 86901; 86920; 87040; 87077; 87086; 87186; 93005; 93306; 94760; 96365; 96375; 99285